=== PATIENT | male | born 1945 | race Caucasian/White ===

== ENCOUNTER → 2020-08-30 | Outpatient (CLI) | payer MEDICARE, BC ==
[2020-08-30 13:21] LABS: BASO # 0.1 10^3/uL (0.0-0.2); BASO % 0.6 % (0.0-1.0); EOS # 0.2 10^3/uL (0.0-0.5); EOS % 2.3 % (0.0-3.0); HEMATOCRIT 32.3 % (42.0-52.0); HEMOGLOBIN 10.3 g/dl (13.5-17.5); LYMPH # 2.2 10^3/uL (1.5-5.0); LYMPH % 27.4 % (24.0-44.0); MEAN CORPUSCULAR HEMOGLOBIN 32.9 pg (27.0-33.0); MEAN CORPUSCULAR HGB CONC 31.9 g/dl (32.0-36.5); MEAN CORPUSCULAR VOLUME 103.2 fl (80.0-96.0); MONO # 0.8 10^3/uL (0.0-0.8); MONO % 9.7 % (0.0-5.0); NEUTROPHILS # 4.9 10^3/uL (1.5-8.5); NEUTROPHILS % 59.5 % (36.0-66.0); PLATELET COUNT, AUTOMATED 230 10^3/uL (150-450); RED BLOOD COUNT 3.13 10^6/uL (4.30-6.10); WHITE BLOOD COUNT 8.2 10^3/uL (4.0-10.0)
[2020-08-30 13:23] LABS: APPEARANCE, URINE CLEAR (CLEAR); BACTERIA, URINE AUTO NEGATIVE (NEGATIVE); BILIRUBIN, URINE AUTO NEGATIVE (NEGATIVE); BLOOD, URINE BLOOD NEGATIVE (NEGATIVE); COLOR, URINE YELLOW (YELLOW); GLUCOSE, URINE (UA) AUTO NEGATIVE (NEGATIVE); KETONE, URINE AUTO NEGATIVE (NEGATIVE); LEUKOCYTE ESTERASE, URINE AUTO NEGATIVE (NEGATIVE); NITRITE, URINE AUTO NEGATIVE (NEGATIVE); PROTEIN, URINE AUTO NEGATIVE (NEGATIVE); RBC, URINE AUTO 0 /HPF (0-3); SPECIFIC GRAVITY URINE AUTO 1.014 (1.002-1.035); SQUAMOUS EPITHELIAL CELL UR AU 0 /HPF (0-6); UROBILINOGEN, URINE AUTO 0.2 mg/dL (0.0-2.0); WBC, URINE AUTO 0 /HPF (0-3)
[2020-08-30 13:54] LABS: BLOOD UREA NITROGEN 19 MG/DL (7-18); CALCIUM LEVEL 8.9 MG/DL (8.8-10.2); CARBON DIOXIDE LEVEL 30 MEQ/L (21-32); CHLORIDE LEVEL 103 MEQ/L (98-107); GLOMERULAR FILTRATION RATE > 60.0 (>42); GLUCOSE, FASTING 88 MG/DL (70-100); POTASSIUM SERUM 4.5 MEQ/L (3.5-5.1); SODIUM LEVEL 139 MEQ/L (136-145)
== END ==
LOC: M WUC 10:35
PROVIDERS: ATTEND Urology
DX: R82.998 Other abnormal findings in urine (principal); R79.9 Abnormal finding of blood chemistry, unspecified

== ENCOUNTER → 2020-11-19 | Outpatient (CLI) | payer SELFPAY | LOC: M LABSMTC 12:33 | PROVIDERS: ATTEND Pediatrics | DX: Z20.828 Contact with and (suspected) exposure to other viral communicable diseases (principal) ==

== ENCOUNTER → 2020-12-25 | Outpatient (CLI) | payer MEDICARE, BC ==
[2020-12-25 12:28] LABS: BASO % 0.4 % (0.0-1.0); EOS # 0.1 10^3/uL (0.0-0.5); EOS % 1.9 % (0.0-3.0); HEMOGLOBIN 11.1 g/dl (13.5-17.5); LYMPH # 2.1 10^3/uL (1.5-5.0); LYMPH % 28.2 % (24.0-44.0); MEAN CORPUSCULAR HEMOGLOBIN 34.2 pg (27.0-33.0); MEAN CORPUSCULAR HGB CONC 32.6 g/dl (32.0-36.5); MEAN CORPUSCULAR VOLUME 104.6 fl (80.0-96.0); MONO # 0.6 10^3/uL (0.0-0.8); MONO % 7.3 % (0.0-5.0); NEUTROPHILS # 4.7 10^3/uL (1.5-8.5); NEUTROPHILS % 62.1 % (36.0-66.0); PLATELET COUNT, AUTOMATED 222 10^3/uL (150-450); RED BLOOD COUNT 3.25 10^6/uL (4.30-6.10); WHITE BLOOD COUNT 7.6 10^3/uL (4.0-10.0)
[2020-12-25 13:18] LABS: CHOLESTEROL LEVEL 153 MG/DL (<200); FERRITIN 511 NG/ML (26-388); FREE T4 0.75 NG/DL (0.76-1.46); HDL CHOLESTEROL 45 MG/DL (>40); LDL CHOLESTEROL 76 MG/DL (<100); NON-HDL-C 108 MG/DL; NT-PRO BNP 98 PG/ML (<125); TOTAL 25(OH) VITAMIN D 26.6 NG/ML (30.0-100.0); TRIGLYCERIDES LEVEL 160 MG/DL (<150); VITAMIN B12 LEVEL 551 PG/ML (247-911)
[2020-12-25 14:10] LABS: PTH INTACT 32.3 PG/ML (18.5-88.0)
[2020-12-25 16:35] LABS: HEMOGLOBIN A1c 5.4 %
[2020-12-27 12:05] LABS: ALBUMIN % 57.1 % (55.8-66.1); ALPHA-1-GLOBULIN % 4.5 % (2.9-4.9); ALPHA-1-GLOBULINS 0.32 GM/DL (0.17-0.41); ALPHA-2-GLOBULINS 0.68 GM/DL (0.42-0.99); ALPHA-2-GLOBULINS % 9.7 % (7.1-11.8); BETA-1-GLOBULINS 0.41 GM/DL (0.28-0.60); BETA-1-GLOBULINS % 5.9 % (4.7-7.2); BETA-2-GLOBULINS 0.42 GM/DL (0.19-0.55); GAMMA GLOBULIN % 16.8 % (11.1-18.8); GAMMA GLOBULINS 1.18 GM/DL (0.65-1.58)
== END ==
LOC: M WUC 10:30
PROVIDERS: ATTEND Family Medicine
DX: D75.89 Other specified diseases of blood and blood-forming organs (principal); E55.9 Vitamin D deficiency, unspecified; E66.9 Obesity, unspecified; E78.2 Mixed hyperlipidemia; I10 Essential (primary) hypertension; Z79.899 Other long term (current) drug therapy

== ENCOUNTER → 2020-12-27 | Outpatient (CLI) | payer MEDICARE, BC | LOC: M LABSMTC 12:03 | PROVIDERS: ATTEND Urology | DX: Z20.822 Contact with and (suspected) exposure to COVID-19 (principal) ==

== ENCOUNTER → 2021-01-18 | Outpatient (CLI) | payer MEDICARE, BC | LOC: M LABSMTC 12:05 | PROVIDERS: ATTEND Urology | DX: Z11.59 Encounter for screening for other viral diseases (principal) ==

== ENCOUNTER → 2021-02-21 | Outpatient (CLI) | payer MEDICARE, BC ==
[~2021-02-21] MED LIST: ISOVUE-370 76% 100ML VIAL As Ordered ONE
--- NOTE | 2021-02-21 08:57 | REP ---
INDICATION: BLADDER CA. COMPARISON: No comparison chest x-ray. TECHNIQUE: Two views.. FINDINGS: The lungs are well inflated and free of infiltrate. The pleural angles are sharp. The heart size is normal. Pulmonary vasculature is not increased. No significant bony abnormality is seen. There is some vascular calcification at the aortic arch. IMPRESSION: No active disease.. <Electronically signed by Jerod Chow > 02/21/21 [id number]
--- NOTE | 2021-02-21 09:41 | REP ---
INDICATION: BLADDER CA. COMPARISON: None. TECHNIQUE: CT abdomen and pelvis performed without IV contrast. CT abdomen pelvis performed with IV contrast as well, following intravenous administration of 100 cc of Isovue 370. Sagittal, coronal and 3D MIP reconstruction images are performed. FINDINGS: Lung bases: Mild fibrotic changes are noted. Liver: A 1 cm hypodense nodule in the left lobe of the liver does not appear to significantly enhance and is consistent with a benign structure such as a cyst. Gallbladder: Prior cholecystectomy. Spleen: Normal. Adrenals: Normal. Pancreas: Normal. Kidneys: In the upper pole the right kidney there is a nonenhancing cyst which measures 2.7 cm in diameter. A cyst in the lower pole the right kidney measures 7 mm in diameter. There is a 1 cm cyst laterally in the mid left kidney. There is no renal or ureteral calculus. Ureters are unremarkable. Diffuse bladder wall thickening is present. Bladder is not optimally distended. There is perivesical fat stranding surrounding the bladder. This raises the possibility of infiltrative tumor although this stranding could be due to cystitis or desmoplastic reaction. Small and large bowel: Unremarkable. Free fluid: None. Adenopathy: None. Appendix: Not inflamed. Osseous structures: There are degenerative changes of the spine without compression deformity. IMPRESSION: Diffuse bladder wall thickening is present. There is perivesical fat stranding surrounding the bladder. This raises the possibility of infiltrative tumor although this stranding could be due to cystitis or desmoplastic reaction. Otherwise no suspicious mass or adenopathy in the abdomen or pelvis. <Electronically signed by Darnell Pina > 02/21/21 0937
== END ==
LOC: M RAD 08:29
PROVIDERS: ATTEND Urology
DX: C67.4 Malignant neoplasm of posterior wall of bladder (principal)
CPT/HCPCS: 71046; 74178; Q9967

== ENCOUNTER → 2021-07-29 | Outpatient (CLI) | payer MEDICARE, BC ==
[2021-07-29 16:43] LABS: BASO % 0.4 % (0.0-1.0); EOS # 0.1 10^3/uL (0.0-0.5); EOS % 1.8 % (0.0-3.0); HEMATOCRIT 32.4 % (42.0-52.0); HEMOGLOBIN 10.5 g/dl (13.5-17.5); LYMPH # 2.3 10^3/uL (1.5-5.0); MEAN CORPUSCULAR HEMOGLOBIN 34.4 pg (27.0-33.0); MEAN CORPUSCULAR HGB CONC 32.4 g/dl (32.0-36.5); MEAN CORPUSCULAR VOLUME 106.2 fl (80.0-96.0); MONO # 0.7 10^3/uL (0.0-0.8); NEUTROPHILS # 4.6 10^3/uL (1.5-8.5); NEUTROPHILS % 58.8 % (36.0-66.0); PLATELET COUNT, AUTOMATED 228 10^3/uL (150-450); RED BLOOD COUNT 3.05 10^6/uL (4.30-6.10); WHITE BLOOD COUNT 7.9 10^3/uL (4.0-10.0)
[2021-07-29 17:10] LABS: ALBUMIN 3.5 GM/DL (3.2-5.2); ALT/SGPT 90 U/L (12-78); BILIRUBIN,TOTAL 0.6 MG/DL (0.2-1.0); BLOOD UREA NITROGEN 21 MG/DL (7-18); C REACTIVE PROTEIN QUANTITATIV 1.15 MG/DL (0.00-0.30); CALCIUM LEVEL 8.9 MG/DL (8.8-10.2); CARBON DIOXIDE LEVEL 28 MEQ/L (21-32); CHLORIDE LEVEL 105 MEQ/L (98-107); CPK CREATINE PHOSPHOKINASE 85 U/L (39-308); CREATININE FOR GFR 0.88 MG/DL (0.70-1.30); GLOMERULAR FILTRATION RATE > 60.0 (>42); GLUCOSE, FASTING 109 MG/DL (70-100); POTASSIUM SERUM 4.6 MEQ/L (3.5-5.1); SODIUM LEVEL 139 MEQ/L (136-145); TOTAL PROTEIN 6.9 GM/DL (6.4-8.2)
[2021-07-31 07:08] LABS: H PYLORI SERUM QUANT IgG ABY 0.43 (0.00-0.79)
== END ==
LOC: M WUC 15:20
PROVIDERS: ATTEND Family Medicine
DX: Z12.5 Encounter for screening for malignant neoplasm of prostate (principal); I10 Essential (primary) hypertension; D75.89 Other specified diseases of blood and blood-forming organs; K21.9 Gastro-esophageal reflux disease without esophagitis; E78.2 Mixed hyperlipidemia
CPT/HCPCS: 36415; 80053; 82550; 83525; 85025; 85046; 86140; 86677; G0103

== ENCOUNTER → 2021-08-12 | Outpatient (REF) | payer MEDICARE, BC | LOC: M SFHCPLAZ 12:57 | PROVIDERS: ATTEND Family Medicine | DX: L57.0 Actinic keratosis (principal) ==

== ENCOUNTER → 2021-08-26 | Outpatient (CLI) | payer MEDICARE, BC ==
--- NOTE | 2021-08-27 00:14 | ECHO ---
ECHOCARDIOGRAM DATE OF PROCEDURE: 08/26/2021 Age: 76 Gender: Male Height: 177 cm Weight: 106 kg REFERRING PHYSICIAN: Dr. Jeffery Nicolas INDICATION: Chronic congestive heart failure 2D MEASUREMENTS: IVS 1.4 cm LV 4.6 cm LVPW 1.4 cm LA 4.6 cm Aorta 3.4 cm Left atrial volume index 36 DOPPLER MEASUREMENT Mitral E wave velocity 83 Mitral A 69 E prime septal 6.3 E prime lateral 8.1 FINDINGS: This study is of fair technical quality with difficult visualization, underlying sinus bradycardia with ventricular rate around 55 beats per minute. Left ventricular is normal size. Mild to moderate left ventricular hypertrophy is noted. Overall estimated LVEF is around 75%. I do not appreciate any segmental wall motion abnormalities. The right ventricle is grossly normal size, but it was poorly visualized. The left atrium is moderately enlarged. The right atrium was poorly seen. The aortic valve is mildly sclerotic, but mobility is preserved. There are also minimal degenerative abnormalities of mitral valve. Mobility of leaflet is preserved as well. The tricuspid valve appears normal. Pulmonic valve was not seen. No pericardial effusion is noted. Inferior vena cava was not seen. Abdominal aorta was not visualized. Aortic root and visualized segment of aortic arch appear normal. Doppler interrogation reveals competent aortic valve. There is trace mitral and trace tricuspid insufficiency. Quality of TR jet was not sufficient in order to determine pulmonary artery pressure. Mitral inflow pattern and tissue Doppler imaging of mitral annulus revealed grade 2 diastolic dysfunction. CONCLUSIONS: 1. Study is of acceptable technical quality considering patient's body habitus; underlying sinus bradycardia. 2. Normal LV size with mild to moderate left ventricular hypertrophy and hyperdynamic LV systolic function. Estimated LVEF approximately 75%. Grade 2 diastolic dysfunction. 3. No hemodynamically significant valvular disease. 4. Unable to estimate central venous pressure and pulmonary artery pressure.
== END ==
LOC: M CARPUL 09:51
PROVIDERS: ATTEND Family Medicine
DX: I50.32 Chronic diastolic (congestive) heart failure (principal)

== ENCOUNTER → 2021-12-03 | Outpatient (CLI) | payer MEDICARE, BC ==
[~2021-12-03] MED LIST changes: +CIDA500T2 PO; -ISOVUE-370 76% 100ML VIAL As Ordered ONE; +LISI10TA22 PO; +LOVA20TA2 PO; +METO1TAB87 PO; +TAMS1CAP17 PO; +VITA200048 PO
== END ==
LOC: M WUC 13:16
PROVIDERS: ATTEND Urology
DX: C67.4 Malignant neoplasm of posterior wall of bladder (principal); R97.20 Elevated prostate specific antigen [PSA]

== ENCOUNTER → 2021-12-17 | Outpatient (CLI) | payer MEDICARE, BC ==
[2021-12-17 17:19] LABS: INR 1.01; PROTHROMBIN TIME 13.7 SECONDS (12.7-14.5)
[2021-12-17 17:20] LABS: PARTIAL THROMBOPLASTIN TIME 36.5 SECONDS (25.9-37.0)
[2021-12-17 17:29] LABS: FERRITIN 482 NG/ML (26-388); IRON (FE) 110 UG/DL (65-175); NT-PRO BNP 220 PG/ML (<125); PERCENT SATURATION 42.8 % (19.7-50.0); TOTAL IRON BINDING CAPACITY 257 UG/DL (250-450)
[2021-12-17 17:47] LABS: HEPATITIS B SURFACE ANTIGEN NEGATIVE (NEGATIVE)
[2021-12-17 18:15] LABS: HEPATITIS C VIRUS ABY INDEX < 0.0 INDEX (<0.8)
== END ==
LOC: M PLALAB 14:56
PROVIDERS: ATTEND Family Medicine
DX: R73.01 Impaired fasting glucose (principal); K76.0 Fatty (change of) liver, not elsewhere classified

== ENCOUNTER → 2022-01-01 | Outpatient (CLI) | payer MEDICARE, BC | LOC: M LABSMTC 11:12 | PROVIDERS: ATTEND Anesthesiology | DX: Z01.818 Encounter for other preprocedural examination (principal); Z11.52 Encounter for screening for COVID-19 ==

== ENCOUNTER 2022-01-06 10:18 | Day surgery (SDC) | payer MEDICARE, BC ==
[~2022-01-06] VITALS: Ht 177.8 cm; Wt 106.1 kg
[~2022-01-06 10:18] MED LIST changes: +NS 1,000 ML IV ONE
[2022-01-06] MEDS ORDERED: LIDOCAINE 2% 100MG/5ML SDV (FOR ANES.) As Ordered ONE (10:53)
[2022-01-06] MEDS ORDERED: propofoL 200 MG/20 ML VIAL As Ordered ONE (10:53)
[2022-01-06 12:15] VITALS: BP 118/57
== END 2022-01-06 13:00 | disposition home or self-care (01) ==
LOC: M OPP 10:18
PROVIDERS: ATTEND Internal Medicine Gastroenterology
DX: Z12.11 Encounter for screening for malignant neoplasm of colon (principal); D12.6 Benign neoplasm of colon, unspecified; K64.8 Other hemorrhoids; N40.0 Benign prostatic hyperplasia without lower urinary tract symptoms; R00.0 Tachycardia, unspecified; Z79.899 Other long term (current) drug therapy; Z88.8 Allergy status to other drugs, medicaments and biological substances; Z85.51 Personal history of malignant neoplasm of bladder

== ENCOUNTER → 2022-02-04 | Outpatient (CLI) | payer MEDICARE, BC ==
[~2022-02-04] MED LIST changes: -NS 1,000 ML IV ONE
[2022-02-04 13:47] LABS: APPEARANCE, URINE CLEAR (CLEAR); BACTERIA, URINE AUTO NEGATIVE (NEGATIVE); BILIRUBIN, URINE AUTO NEGATIVE (NEGATIVE); BLOOD, URINE BLOOD NEGATIVE (NEGATIVE); COLOR, URINE YELLOW (YELLOW); GLUCOSE, URINE (UA) AUTO NEGATIVE (NEGATIVE); KETONE, URINE AUTO NEGATIVE (NEGATIVE); LEUKOCYTE ESTERASE, URINE AUTO NEGATIVE (NEGATIVE); MUCUS, URINE SMALL (NEGATIVE); NITRITE, URINE AUTO NEGATIVE (NEGATIVE); PROTEIN, URINE AUTO NEGATIVE (NEGATIVE); RBC, URINE AUTO 0 /HPF (0-3); SPECIFIC GRAVITY URINE AUTO 1.019 (1.002-1.035); SQUAMOUS EPITHELIAL CELL UR AU 0 /HPF (0-6); WBC, URINE AUTO 1 /HPF (0-3)
[2022-02-04 13:53] LABS: BASO % 0.5 % (0.0-1.0); EOS # 0.1 10^3/uL (0.0-0.5); EOS % 1.4 % (0.0-3.0); HEMATOCRIT 31.1 % (42.0-52.0); HEMOGLOBIN 10.3 g/dl (13.5-17.5); LYMPH # 2.3 10^3/uL (1.5-5.0); LYMPH % 26.7 % (24.0-44.0); MEAN CORPUSCULAR HEMOGLOBIN 34.8 pg (27.0-33.0); MEAN CORPUSCULAR HGB CONC 33.1 g/dl (32.0-36.5); MEAN CORPUSCULAR VOLUME 105.1 fl (80.0-96.0); MONO # 0.7 10^3/uL (0.0-0.8); MONO % 8.4 % (2.0-8.0); NEUTROPHILS # 5.4 10^3/uL (1.5-8.5); NEUTROPHILS % 62.7 % (36.0-66.0); PLATELET COUNT, AUTOMATED 221 10^3/uL (150-450); RED BLOOD COUNT 2.96 10^6/uL (4.30-6.10); WHITE BLOOD COUNT 8.7 10^3/uL (4.0-10.0)
[2022-02-04 13:58] LABS: INR 0.99; PROTHROMBIN TIME 13.5 SECONDS (12.7-14.5)
[2022-02-04 14:21] LABS: ALBUMIN 3.6 GM/DL (3.2-5.2); ALT/SGPT 71 U/L (12-78); BILIRUBIN,TOTAL 0.5 MG/DL (0.2-1.0); BLOOD UREA NITROGEN 21 MG/DL (7-18); CARBON DIOXIDE LEVEL 33 MEQ/L (21-32); CHLORIDE LEVEL 106 MEQ/L (98-107); CREATININE FOR GFR 0.94 MG/DL (0.70-1.30); GLOMERULAR FILTRATION RATE > 60.0 (>42); GLUCOSE, FASTING 90 MG/DL (70-100); NT-PRO BNP 281 PG/ML (<125); POTASSIUM SERUM 4.7 MEQ/L (3.5-5.1); SODIUM LEVEL 140 MEQ/L (136-145)
[2022-02-04 14:48] LABS: HEMOGLOBIN A1c 5.7 %
[2022-02-07 19:10] LABS: ANTI-MITOCHONDRIAL ANTIBODY <20.0 Units (0.0-20.0); INSULIN LEVEL 29.9 uIU/mL (2.6-24.9)
== END ==
LOC: M PLALAB 11:49
PROVIDERS: ATTEND Family Medicine
DX: D75.89 Other specified diseases of blood and blood-forming organs (principal); I11.0 Hypertensive heart disease with heart failure; K76.0 Fatty (change of) liver, not elsewhere classified; R73.01 Impaired fasting glucose; I50.32 Chronic diastolic (congestive) heart failure; Z12.5 Encounter for screening for malignant neoplasm of prostate; Z79.899 Other long term (current) drug therapy
CPT/HCPCS: 36415; 80053; 81001; 81256; 83036; 83525; 83625; 83880; 85025; 85610; 85730; 86255; 87086; G0103

== ENCOUNTER → 2022-02-06 | Outpatient (CLI) | payer MEDICARE, BC | LOC: M LABSMTC 11:00 | PROVIDERS: ATTEND Urology | DX: Z11.52 Encounter for screening for COVID-19 (principal) ==

== ENCOUNTER → 2022-03-31 | Outpatient (CLI) | payer MEDICARE, BC | LOC: M SLEEP HO 10:13 | PROVIDERS: ATTEND Family Medicine | DX: G47.33 Obstructive sleep apnea (adult) (pediatric) (principal) ==

== ENCOUNTER 2022-05-30 20:40 | Emergency (ER) | payer MEDICARE, BC ==
[~2022-05-30] VITALS: Ht 177.8 cm; Wt 106.0 kg
[2022-05-30 23:34] LABS: BASO % 0.4 % (0.0-1.0); EOS # 0.1 10^3/uL (0.0-0.5); EOS % 1.5 % (0.0-3.0); HEMATOCRIT 30.9 % (42.0-52.0); HEMOGLOBIN 9.9 g/dl (13.5-17.5); LYMPH # 2.4 10^3/uL (1.5-5.0); LYMPH % 28.5 % (24.0-44.0); MEAN CORPUSCULAR HEMOGLOBIN 34.4 pg (27.0-33.0); MEAN CORPUSCULAR VOLUME 107.3 fl (80.0-96.0); MONO # 0.6 10^3/uL (0.0-0.8); MONO % 6.7 % (2.0-8.0); NEUTROPHILS # 5.3 10^3/uL (1.5-8.5); NEUTROPHILS % 62.4 % (36.0-66.0); PLATELET COUNT, AUTOMATED 212 10^3/uL (150-450); RED BLOOD COUNT 2.88 10^6/uL (4.30-6.10); WHITE BLOOD COUNT 8.5 10^3/uL (4.0-10.0)
[2022-05-30 23:57] LABS: ALBUMIN 4.1 GM/DL (3.2-5.2); ALT/SGPT 71 U/L (12-78); BILIRUBIN,DIRECT 0.3 MG/DL (0.0-0.2); BILIRUBIN,TOTAL 0.7 MG/DL (0.2-1.0); BLOOD UREA NITROGEN 22 MG/DL (7-18); CALCIUM LEVEL 9.2 MG/DL (8.8-10.2); CARBON DIOXIDE LEVEL 32 MEQ/L (21-32); CHLORIDE LEVEL 106 MEQ/L (98-107); CREATININE FOR GFR 1.01 MG/DL (0.70-1.30); GLOMERULAR FILTRATION RATE > 60.0 (>42); GLUCOSE, FASTING 98 MG/DL (70-100); LIPASE 263 U/L (73-393); POTASSIUM SERUM 4.6 MEQ/L (3.5-5.1); SODIUM LEVEL 140 MEQ/L (136-145); TOTAL PROTEIN 6.9 GM/DL (6.4-8.2)
[2022-05-31 04:35] LABS: CK-MB VALUE MASS 2.4 NG/ML (<3.6); MB/CK RELATIVE INDEX 2.4 (< OR =4)
[2022-05-31] MEDS ORDERED: ISOVUE-370 76% 100ML VIAL As Ordered ONE (06:13)
[2022-05-31 10:00] VITALS: BP 174/76
== END 2022-05-31 10:26 | disposition home or self-care (01) ==
LOC: M ED 20:40
DX: R10.9 Unspecified abdominal pain (principal); R19.7 Diarrhea, unspecified; I10 Essential (primary) hypertension; E78.5 Hyperlipidemia, unspecified; N40.0 Benign prostatic hyperplasia without lower urinary tract symptoms; Z88.8 Allergy status to other drugs, medicaments and biological substances; Z88.6 Allergy status to analgesic agent; Z79.899 Other long term (current) drug therapy
CPT/HCPCS: 36415; 74177; 80048; 80076; 81001; 82550; 82553; 83690; 84484; 85025; 99284; Q9967

== ENCOUNTER → 2022-07-09 | Outpatient (CLI) | payer MEDICARE, BC ==
[~2022-07-09] MED LIST changes: +BACT800T5 PO; +OXYB5TAB10 PO; +PYRI1TAB5 PO
== END ==
LOC: M LABSMTC 09:15
PROVIDERS: ATTEND Anesthesiology
DX: Z01.812 Encounter for preprocedural laboratory examination (principal); Z20.822 Contact with and (suspected) exposure to COVID-19

== ENCOUNTER → 2022-07-09 | Outpatient (CLI) | payer MEDICARE, BC ==
[2022-07-09 14:12] LABS: HEMATOCRIT 33.3 % (42.0-52.0); HEMOGLOBIN 10.6 g/dl (13.5-17.5); MEAN CORPUSCULAR HEMOGLOBIN 34.8 pg (27.0-33.0); MEAN CORPUSCULAR HGB CONC 31.8 g/dl (32.0-36.5); MEAN CORPUSCULAR VOLUME 109.2 fl (80.0-96.0); PLATELET COUNT, AUTOMATED 229 10^3/uL (150-450); RED BLOOD COUNT 3.05 10^6/uL (4.30-6.10); WHITE BLOOD COUNT 7.4 10^3/uL (4.0-10.0)
[2022-07-09 14:28] LABS: PROTHROMBIN TIME 13.6 SECONDS (12.7-14.5)
[2022-07-09 14:50] LABS: ALBUMIN 3.7 GM/DL (3.2-5.2); ALT/SGPT 73 U/L (12-78); BILIRUBIN,TOTAL 1.1 MG/DL (0.2-1.0); BLOOD UREA NITROGEN 20 MG/DL (7-18); CALCIUM LEVEL 8.9 MG/DL (8.8-10.2); CARBON DIOXIDE LEVEL 30 MEQ/L (21-32); CHLORIDE LEVEL 104 MEQ/L (98-107); CREATININE FOR GFR 0.91 MG/DL (0.70-1.30); GLOMERULAR FILTRATION RATE > 60.0 (>42); GLUCOSE, FASTING 103 MG/DL (70-100); NT-PRO BNP 220 PG/ML (<450); POTASSIUM SERUM 4.7 MEQ/L (3.5-5.1); SODIUM LEVEL 139 MEQ/L (136-145); TOTAL PROTEIN 7.6 GM/DL (6.4-8.2)
== END ==
LOC: M PLAIMG 10:39
PROVIDERS: ATTEND Internal Medicine Hematology
DX: Z01.810 Encounter for preprocedural cardiovascular examination (principal); C67.9 Malignant neoplasm of bladder, unspecified; Z79.899 Other long term (current) drug therapy

== ENCOUNTER 2022-07-14 07:36 | Day surgery (SDC) | payer MEDICARE, BC ==
[~2022-07-14] VITALS: Ht 177.8 cm; Wt 106.5 kg
[~2022-07-14 07:36] MED LIST changes: -BACT800T5 PO; +ISOVUE-300 61% 50ML VIAL As Ordered ONE; -OXYB5TAB10 PO; -PYRI1TAB5 PO; +ceFAZolin SOD 2 GM in IV 1 EA IV ONE
[2022-07-14] MEDS ORDERED: LR 1,000 ML IV SCH ×2 (08:10→09:15)
[2022-07-14] MEDS ORDERED: ONDANSETRON 4MG 2ML VIAL As Ordered ONE (08:46)
[2022-07-14] MEDS ORDERED: LIDOCAINE 2% 100MG/5ML SDV (FOR ANES.) As Ordered ONE (08:46)
[2022-07-14] MEDS ORDERED: METOCLOPRAMIDE INJ 10MG/2ML VIAL (J2765 PER 1) As Ordered ONE (08:46)
[2022-07-14] MEDS ORDERED: SEVOFLURANE INHAL SOLN 250 ML BTL As Ordered ONE (08:46)
[2022-07-14] MEDS ORDERED: dexameTHASONE 4 MG/ML 1ML VIAL (J1100 PER 1MG) As Ordered ONE (08:46)
[2022-07-14] MEDS ORDERED: propofoL 200 MG/20 ML VIAL As Ordered ONE (08:46)
[2022-07-14] MEDS ORDERED: fentaNYL 100 MCG/2 ML INJECTION As Ordered ONE (08:46)
[2022-07-14] MEDS ORDERED: ACETAMINOPHEN 1000MG 100ML IV BTL (OFIRMEV) (J0131 PER 10MG) As Ordered ONE (08:46)
[2022-07-14] MEDS ORDERED: SUGAMMADEX SODIUM 500 MG/5 ML VIAL (BRIDION) As Ordered ONE (08:46)
[2022-07-14] MEDS ORDERED: ROCURONIUM BROMIDE 50 MG/5 ML VIAL As Ordered ONE (08:46)
[2022-07-14] MEDS ORDERED: MIDAZOLAM INJ 2MG/2ML VIAL (J2250 PER 1MG) As Ordered ONE (08:46)
[2022-07-14] MEDS ORDERED: mitoMYcin 40MG VIAL *UROLOGY* (J9280 PER 5MG) INTRAVESIC ONE (09:00)
[2022-07-14] MEDS ORDERED: ALBUTEROL 6.7GM INHALER **FOR ANES. CART/OMNICELL ONLY As Ordered ONE (09:07)
[2022-07-14] MEDS ORDERED: fentaNYL 100 MCG/2 ML INJECTION IV PRN (09:15)
[2022-07-14] MEDS ORDERED: ONDANSETRON 4MG 2ML VIAL IV PRN (09:15)
[2022-07-14] MEDS ORDERED: PYRI1TAB5 PO (09:15)
[2022-07-14] MEDS ORDERED: BACT800T5 PO (09:15)
[2022-07-14] MEDS ORDERED: oxyCODONE 5MG TAB PO PRN (09:15)
[2022-07-14] MEDS ORDERED: OXYB5TAB10 PO (09:15)
[2022-07-14 11:30] VITALS: BP 133/70
== END 2022-07-14 11:55 | disposition home or self-care (01) ==
LOC: M SDC 07:36
PROVIDERS: ATTEND Urology
DX: N30.80 Other cystitis without hematuria (principal); Z85.51 Personal history of malignant neoplasm of bladder; I25.10 Atherosclerotic heart disease of native coronary artery without angina pectoris; I25.2 Old myocardial infarction; I10 Essential (primary) hypertension; G47.33 Obstructive sleep apnea (adult) (pediatric); E78.5 Hyperlipidemia, unspecified; Z87.891 Personal history of nicotine dependence; Z79.899 Other long term (current) drug therapy; K21.9 Gastro-esophageal reflux disease without esophagitis; Z92.21 Personal history of antineoplastic chemotherapy; Z88.8 Allergy status to other drugs, medicaments and biological substances
CPT/HCPCS: 51720; 52235; 88305; J0131; J0690; J1100; J2250; J2405; J2765; J3010; J9280

== ENCOUNTER → 2022-07-21 | Outpatient (REF) | payer MEDICARE, BC ==
[~2022-07-21] MED LIST changes: +BACT800T5 PO; -ISOVUE-300 61% 50ML VIAL As Ordered ONE; +OXYB5TAB10 PO; +PYRI1TAB5 PO; -ceFAZolin SOD 2 GM in IV 1 EA IV ONE
[2022-07-21 13:25] LABS: APPEARANCE, URINE MANUAL CLEAR (CLEAR); BILIRUBIN, URINE MANUAL OBSCURED (NEGATIVE); COLOR, URINE MANUAL ORANGE (YELLOW); KETONE, URINE MANUAL OBSCURED mg/dL (NEGATIVE); UROBILINOGEN, URINE MANUAL OBSCURED mg/dl (NORMAL)
[2022-07-21 13:26] LABS: BLOOD URINE MANUAL POSITIVE (NEGATIVE); GLUCOSE, URINE (UA) MANUAL NEGATIVE (NEGATIVE); PROTEIN, URINE MANUAL OBSCURED mg/dL (NEGATIVE)
[2022-07-21 13:27] LABS: LEUKOCYTE ESTERASE, URINE MAN OBSCURED (NEGATIVE); NITRITE, URINE MANUAL OBSCURED (NEGATIVE)
[2022-07-21 13:40] LABS: BACTERIA, URINE SMALL AMOUNT; HYALINE CAST, URINE NONE SEEN /lpf (0-1); MUCUS, URINE SMALL AMOUNT (NEGATIVE); RBC, URINE 30-40 /hpf (0-3); SQUAMOUS EPITHELIAL CELL URINE SMALL AMOUNT /hpf (SMALL AMT)
== END ==
LOC: M SMT 13:09
PROVIDERS: ATTEND Physician Assistant
DX: R30.0 Dysuria (principal)

== ENCOUNTER → 2022-08-08 | Outpatient (CLI) | payer MEDICARE, BC ==
[2022-08-08 18:09] LABS: BASO % 0.6 % (0.0-1.0); EOS # 0.3 10^3/uL (0.0-0.5); EOS % 4.2 % (0.0-3.0); HEMATOCRIT 30.2 % (42.0-52.0); HEMOGLOBIN 9.7 g/dl (13.5-17.5); LYMPH % 27.8 % (24.0-44.0); MEAN CORPUSCULAR HEMOGLOBIN 34.5 pg (27.0-33.0); MEAN CORPUSCULAR HGB CONC 32.1 g/dl (32.0-36.5); MEAN CORPUSCULAR VOLUME 107.5 fl (80.0-96.0); MONO # 0.6 10^3/uL (0.0-0.8); NEUTROPHILS # 4.2 10^3/uL (1.5-8.5); NEUTROPHILS % 59.1 % (36.0-66.0); PLATELET COUNT, AUTOMATED 234 10^3/uL (150-450); RED BLOOD COUNT 2.81 10^6/uL (4.30-6.10); WHITE BLOOD COUNT 7.2 10^3/uL (4.0-10.0)
[2022-08-08 18:39] LABS: ALT/SGPT 80 U/L (12-78); BILIRUBIN,TOTAL 0.6 MG/DL (0.2-1.0); BLOOD UREA NITROGEN 18 MG/DL (7-18); C REACTIVE PROTEIN QUANTITATIV 1.94 MG/DL (0.00-0.30); CALCIUM LEVEL 9.4 MG/DL (8.8-10.2); CARBON DIOXIDE LEVEL 29 MEQ/L (21-32); CHLORIDE LEVEL 103 MEQ/L (98-107); CREATININE FOR GFR 0.91 MG/DL (0.70-1.30); GLOMERULAR FILTRATION RATE > 60.0 (>42); GLUCOSE, FASTING 92 MG/DL (70-100); POTASSIUM SERUM 4.8 MEQ/L (3.5-5.1); SODIUM LEVEL 135 MEQ/L (136-145); TOTAL PROTEIN 7.6 GM/DL (6.4-8.2)
[2022-08-08 19:33] LABS: APPEARANCE, URINE MANUAL CLEAR (CLEAR); BILIRUBIN, URINE MANUAL OBSCURED (NEGATIVE); COLOR, URINE MANUAL ORANGE (YELLOW); GLUCOSE, URINE (UA) MANUAL OBSCURED mg/dL (NEGATIVE); KETONE, URINE MANUAL OBSCURED mg/dL (NEGATIVE); PH,URINE MAN OBSCURED UNITS (5.0 - 7.0); PROTEIN, URINE MANUAL OBSCURED mg/dL (NEGATIVE); SPECIFIC GRAVITY,URINE MANUAL 1.015 (1.002-1.035); UROBILINOGEN, URINE MANUAL OBSCURED mg/dl (NORMAL)
[2022-08-08 19:34] LABS: BLOOD URINE MANUAL OBSCURED (NEGATIVE); LEUKOCYTE ESTERASE, URINE MAN OBSCURED (NEGATIVE); NITRITE, URINE MANUAL OBSCURED (NEGATIVE)
[2022-08-08 19:51] LABS: BACTERIA, URINE NONE SEEN; HYALINE CAST, URINE 0-1 /lpf (0-1); RBC, URINE 0-1 /hpf (0-3); SQUAMOUS EPITHELIAL CELL URINE NONE SEEN /hpf (SMALL AMT)
== END ==
LOC: M LAB 17:25
PROVIDERS: ATTEND Family Medicine
DX: C67.9 Malignant neoplasm of bladder, unspecified (principal); Z79.899 Other long term (current) drug therapy
CPT/HCPCS: 36415; 80053; 81000; 85025; 86140; 87086; G0103

== ENCOUNTER → 2022-08-26 | Outpatient (CLI) | payer MEDICARE, BC | LOC: M SLEEP 20:00 | PROVIDERS: ATTEND Physician Assistant | DX: G47.33 Obstructive sleep apnea (adult) (pediatric) (principal) ==

== ENCOUNTER → 2022-09-08 | Outpatient (REF) | payer MEDICARE, BC ==
[2022-09-08 17:05] LABS: BASO % 0.6 % (0.0-1.0); EOS # 0.1 10^3/uL (0.0-0.5); EOS % 1.8 % (0.0-3.0); HEMATOCRIT 29.2 % (42.0-52.0); HEMOGLOBIN 9.3 g/dl (13.5-17.5); LYMPH # 1.8 10^3/uL (1.5-5.0); LYMPH % 27.4 % (24.0-44.0); MEAN CORPUSCULAR HEMOGLOBIN 34.3 pg (27.0-33.0); MEAN CORPUSCULAR HGB CONC 31.8 g/dl (32.0-36.5); MEAN CORPUSCULAR VOLUME 107.7 fl (80.0-96.0); MONO # 0.6 10^3/uL (0.0-0.8); MONO % 8.4 % (2.0-8.0); NEUTROPHILS % 61.5 % (36.0-66.0); PLATELET COUNT, AUTOMATED 243 10^3/uL (150-450); RED BLOOD COUNT 2.71 10^6/uL (4.30-6.10); WHITE BLOOD COUNT 6.5 10^3/uL (4.0-10.0)
[2022-09-08 17:30] LABS: INR 0.99; PROTHROMBIN TIME 13.3 SECONDS (12.5-14.5)
[2022-09-08 17:31] LABS: PARTIAL THROMBOPLASTIN TIME 31.1 SECONDS (24.8-34.2)
== END ==
LOC: M PLALAB 16:37
PROVIDERS: ATTEND Physician Assistant
DX: K62.5 Hemorrhage of anus and rectum (principal)

== ENCOUNTER → 2022-10-06 | Outpatient (CLI) | payer MEDICARE, BC | LOC: M SLEEP 20:00 | PROVIDERS: ATTEND Physician Assistant | DX: G47.33 Obstructive sleep apnea (adult) (pediatric) (principal) ==

== ENCOUNTER → 2022-10-06 | Outpatient (CLI) | payer MEDICARE, BC ==
[2022-10-06 18:09] LABS: BASO % 0.5 % (0.0-1.0); EOS # 0.1 10^3/uL (0.0-0.5); EOS % 1.7 % (0.0-3.0); HEMATOCRIT 28.5 % (42.0-52.0); HEMOGLOBIN 8.9 g/dl (13.5-17.5); LYMPH # 1.6 10^3/uL (1.5-5.0); LYMPH % 27.5 % (24.0-44.0); MEAN CORPUSCULAR HEMOGLOBIN 34.2 pg (27.0-33.0); MEAN CORPUSCULAR HGB CONC 31.2 g/dl (32.0-36.5); MEAN CORPUSCULAR VOLUME 109.6 fl (80.0-96.0); MONO # 0.6 10^3/uL (0.0-0.8); MONO % 9.8 % (2.0-8.0); NEUTROPHILS # 3.6 10^3/uL (1.5-8.5); NEUTROPHILS % 60.2 % (36.0-66.0); PLATELET COUNT, AUTOMATED 217 10^3/uL (150-450); WHITE BLOOD COUNT 5.9 10^3/uL (4.0-10.0)
[2022-10-06 21:02] LABS: VITAMIN B12 LEVEL 408 PG/ML (247-911)
== END ==
LOC: M PLALAB 15:44
PROVIDERS: ATTEND Family Medicine
DX: D64.9 Anemia, unspecified (principal)

== ENCOUNTER → 2022-10-15 | Outpatient (REF) | payer MEDICARE, BC ==
[2022-10-15 20:14] LABS: APPEARANCE, URINE MANUAL CLEAR (CLEAR)
[2022-10-15 20:15] LABS: COLOR, URINE MANUAL ORANGE (YELLOW); GLUCOSE, URINE (UA) MANUAL NEGATIVE (NEGATIVE); KETONE, URINE MANUAL OBSCURED mg/dL (NEGATIVE); PROTEIN, URINE MANUAL OBSCURED mg/dL (NEGATIVE); SPECIFIC GRAVITY,URINE MANUAL 1.025 (1.002-1.035)
[2022-10-15 20:28] LABS: BILIRUBIN, URINE MANUAL OBSCURED (NEGATIVE); LEUKOCYTE ESTERASE, URINE MAN OBSCURED (NEGATIVE); NITRITE, URINE MANUAL OBSCURED (NEGATIVE); UROBILINOGEN, URINE MANUAL OBSCURED mg/dl (NORMAL)
[2022-10-15 20:29] LABS: BLOOD URINE MANUAL NEGATIVE (NEGATIVE)
[2022-10-15 20:32] LABS: BACTERIA, URINE SMALL AMOUNT; HYALINE CAST, URINE NONE SEEN /lpf (0-1); MUCUS, URINE SMALL AMOUNT (NEGATIVE); RBC, URINE 0-1 /hpf (0-3); SQUAMOUS EPITHELIAL CELL URINE SMALL AMOUNT /hpf (SMALL AMT)
== END ==
LOC: M SMT 17:13
PROVIDERS: ATTEND Urology
DX: Z85.51 Personal history of malignant neoplasm of bladder (principal)

== ENCOUNTER 2022-11-08 14:52 | Emergency (ER) | payer MEDICARE, BC ==
[~2022-11-08] VITALS: Ht 177.8 cm; Wt 99.1 kg
[2022-11-08] MEDS ORDERED: PENT10CA (15:10)
[2022-11-08] MEDS ORDERED: ACET-683 PO (15:10)
[2022-11-08] MEDS ORDERED: ASPIRIN 81MG CHEW TABLET PO ONE (15:20)
[2022-11-08] MEDS ORDERED: NITROGLYCERIN 0.4MG SUBL TABLET SL PRN (15:20)
[2022-11-08 15:24] VITALS: BP 158/72
[2022-11-08 15:34] LABS: BASO % 0.4 % (0.0-1.0); EOS # 0.1 10^3/uL (0.0-0.5); HEMATOCRIT 27.6 % (42.0-52.0); HEMOGLOBIN 8.8 g/dl (13.5-17.5); LYMPH # 1.8 10^3/uL (1.5-5.0); MEAN CORPUSCULAR HEMOGLOBIN 34.1 pg (27.0-33.0); MEAN CORPUSCULAR HGB CONC 31.9 g/dl (32.0-36.5); MONO # 0.5 10^3/uL (0.0-0.8); MONO % 8.7 % (2.0-8.0); NEUTROPHILS # 3.2 10^3/uL (1.5-8.5); NEUTROPHILS % 56.7 % (36.0-66.0); PLATELET COUNT, AUTOMATED 241 10^3/uL (150-450); RED BLOOD COUNT 2.58 10^6/uL (4.30-6.10); WHITE BLOOD COUNT 5.6 10^3/uL (4.0-10.0)
[2022-11-08 15:49] LABS: INR 0.99; PROTHROMBIN TIME 13.3 SECONDS (12.5-14.5)
[2022-11-08 15:50] LABS: PARTIAL THROMBOPLASTIN TIME 30.9 SECONDS (24.8-34.2)
[2022-11-08 15:58] LABS: CK-MB VALUE MASS 1.9 NG/ML (<3.6)
[2022-11-08 15:59] LABS: LIPASE 51 U/L (12-53)
[2022-11-08 16:00] LABS: BILIRUBIN,DIRECT 0.3 MG/DL (<0.4); CPK CREATINE PHOSPHOKINASE 79 U/L (46-171)
[2022-11-08 16:01] LABS: ALBUMIN 3.9 G/DL (3.2-5.2); ALKALINE PHOSPHATASE 98 U/L (46-116); ALT/SGPT 45 U/L (7.0-40); AST/SGOT 36 U/L (<34); BILIRUBIN,TOTAL 0.7 MG/DL (0.3-1.2); BLOOD UREA NITROGEN 25 MG/DL (9-23); CALCIUM LEVEL 8.9 MG/DL (8.3-10.6); CARBON DIOXIDE LEVEL 25 MMOL/L (20-31); CHLORIDE LEVEL 103 MMOL/L (98-107); CREATININE FOR GFR 0.96 MG/DL (0.70-1.30); GLOMERULAR FILTRATION RATE > 60.0 (>42); GLUCOSE, FASTING 113 MG/DL (74-106); POTASSIUM SERUM 4.2 MMOL/L (3.5-5.1); SODIUM LEVEL 140 MMOL/L (136-145); TOTAL PROTEIN 6.8 G/DL (5.7-8.2)
[2022-11-08 16:03] LABS: FREE T4 0.89 NG/DL (0.89-1.76); THYROID STIMULATING HORMONE 1.762 uIU/ML (0.55-4.78)
[2022-11-08] MEDS ORDERED: ISOVUE-370 76% 100ML VIAL As Ordered ONE (16:19)
[2022-11-08 16:56] LABS: CK-MB VALUE MASS 2.7 NG/ML (<3.6)
[2022-11-08 16:57] LABS: MB/CK RELATIVE INDEX 3.64 (< OR =4)
[2022-11-08 17:45] VITALS: BP 168/74
[2022-11-08] MEDS ORDERED: NITR4TASL SL (17:56)
== END 2022-11-08 18:15 | disposition home or self-care (01) ==
LOC: M ED 14:52
DX: R07.9 Chest pain, unspecified (principal); I11.0 Hypertensive heart disease with heart failure; I50.9 Heart failure, unspecified; E78.5 Hyperlipidemia, unspecified; I25.10 Atherosclerotic heart disease of native coronary artery without angina pectoris; I25.2 Old myocardial infarction; N40.0 Benign prostatic hyperplasia without lower urinary tract symptoms; K21.9 Gastro-esophageal reflux disease without esophagitis; C67.9 Malignant neoplasm of bladder, unspecified; K76.0 Fatty (change of) liver, not elsewhere classified
CPT/HCPCS: 36415; 71046; 71275; 80048; 80076; 82550; 82553; 83690; 84439; 84443; 84484; 85025; 85610; 85730; 93005; 93041; 94760; 99285; Q9967

== ENCOUNTER → 2022-11-13 | Outpatient (CLI) | payer MEDICARE, BC ==
[~2022-11-13] MED LIST changes: +ACET-683 PO; +NITR4TASL SL; +PENT10CA
[2022-11-13 13:36] LABS: BASO % 0.5 % (0.0-1.0); EOS # 0.1 10^3/uL (0.0-0.5); EOS % 1.1 % (0.0-3.0); HEMATOCRIT 28.3 % (42.0-52.0); HEMOGLOBIN 8.7 g/dl (13.5-17.5); LYMPH # 1.8 10^3/uL (1.5-5.0); LYMPH % 28.4 % (24.0-44.0); MEAN CORPUSCULAR HEMOGLOBIN 33.6 pg (27.0-33.0); MEAN CORPUSCULAR HGB CONC 30.7 g/dl (32.0-36.5); MEAN CORPUSCULAR VOLUME 109.3 fl (80.0-96.0); MONO # 0.6 10^3/uL (0.0-0.8); MONO % 9.5 % (2.0-8.0); NEUTROPHILS # 3.9 10^3/uL (1.5-8.5); NEUTROPHILS % 60.2 % (36.0-66.0); PLATELET COUNT, AUTOMATED 230 10^3/uL (150-450); RED BLOOD COUNT 2.59 10^6/uL (4.30-6.10); WHITE BLOOD COUNT 6.5 10^3/uL (4.0-10.0)
[2022-11-13 13:50] LABS: IRON (FE) 94 UG/DL (65-175)
[2022-11-13 13:51] LABS: ALBUMIN 3.4 G/DL (3.2-5.2); ALKALINE PHOSPHATASE 99 U/L (46-116); ALT/SGPT 59 U/L (7.0-40); AST/SGOT 57 U/L (<34); BILIRUBIN,TOTAL 0.5 MG/DL (0.3-1.2); BLOOD UREA NITROGEN 23 MG/DL (9-23); CALCIUM LEVEL 9.6 MG/DL (8.3-10.6); CARBON DIOXIDE LEVEL 26 MMOL/L (20-31); CHLORIDE LEVEL 106 MMOL/L (98-107); CREATININE FOR GFR 0.85 MG/DL (0.70-1.30); FERRITIN 263.9 NG/ML (10.5-307.3); GLOMERULAR FILTRATION RATE > 60.0 (>42); GLUCOSE, FASTING 94 MG/DL (74-106); PERCENT SATURATION 34.2 % (19.7-50.0); SODIUM LEVEL 140 MMOL/L (136-145); TOTAL IRON BINDING CAPACITY 275 UG/DL (250-425); TOTAL PROTEIN 6.5 G/DL (5.7-8.2)
== END ==
LOC: M PLALAB 11:58
PROVIDERS: ATTEND Physician Assistant
DX: D64.9 Anemia, unspecified (principal)

== ENCOUNTER → 2022-11-21 | Outpatient (CLI) | payer MEDICARE, BC ==
[~2022-11-21] VITALS: Ht 177.8 cm; Wt 102.2 kg
[~2022-11-21] MED LIST changes: +FUROSEMIDE 40MG/4ML VIAL IV ONE
[2022-11-21 08:15] VITALS: BP 136/65
[2022-11-21 10:15] VITALS: BP 117/55
[2022-11-21 11:15] VITALS: BP 150/68
[2022-11-21 12:00] VITALS: BP 143/64
== END ==
LOC: M INFU 08:13
PROVIDERS: ATTEND Family Medicine
DX: D64.9 Anemia, unspecified (principal); Z88.8 Allergy status to other drugs, medicaments and biological substances
CPT/HCPCS: 36430; 86850; 86900; 86901; 86920; P9016

== ENCOUNTER → 2022-11-26 | Outpatient (CLI) | payer MEDICARE, BC ==
[~2022-11-26] MED LIST changes: -FUROSEMIDE 40MG/4ML VIAL IV ONE
[2022-11-26 13:46] LABS: BASO % 0.3 % (0.0-1.0); EOS # 0.1 10^3/uL (0.0-0.5); EOS % 1.7 % (0.0-3.0); HEMATOCRIT 31.6 % (42.0-52.0); HEMOGLOBIN 9.9 g/dl (13.5-17.5); LYMPH # 1.6 10^3/uL (1.5-5.0); LYMPH % 22.2 % (24.0-44.0); MEAN CORPUSCULAR HEMOGLOBIN 33.8 pg (27.0-33.0); MEAN CORPUSCULAR HGB CONC 31.3 g/dl (32.0-36.5); MEAN CORPUSCULAR VOLUME 107.8 fl (80.0-96.0); MONO # 0.7 10^3/uL (0.0-0.8); MONO % 9.3 % (2.0-8.0); NEUTROPHILS # 4.7 10^3/uL (1.5-8.5); NEUTROPHILS % 66.1 % (36.0-66.0); PLATELET COUNT, AUTOMATED 216 10^3/uL (150-450); RED BLOOD COUNT 2.93 10^6/uL (4.30-6.10); WHITE BLOOD COUNT 7.1 10^3/uL (4.0-10.0)
[2022-11-26 13:56] LABS: INR 1.01; PARTIAL THROMBOPLASTIN TIME 31.4 SECONDS (24.8-34.2); PROTHROMBIN TIME 13.5 SECONDS (12.5-14.5)
[2022-11-26 14:13] LABS: MAGNESIUM LEVEL 2.1 MG/DL (1.8-2.4)
[2022-11-26 14:14] LABS: ALBUMIN 3.8 G/DL (3.2-5.2); ALKALINE PHOSPHATASE 112 U/L (46-116); ALT/SGPT 66 U/L (7.0-40); AST/SGOT 54 U/L (<34); BILIRUBIN,TOTAL 0.7 MG/DL (0.3-1.2); BLOOD UREA NITROGEN 21 MG/DL (9-23); CALCIUM LEVEL 9.3 MG/DL (8.3-10.6); CARBON DIOXIDE LEVEL 30 MMOL/L (20-31); CHLORIDE LEVEL 103 MMOL/L (98-107); CREATININE FOR GFR 0.84 MG/DL (0.70-1.30); GLOMERULAR FILTRATION RATE > 60.0 (>42); GLUCOSE, FASTING 100 MG/DL (74-106); POTASSIUM SERUM 4.9 MMOL/L (3.5-5.1); SODIUM LEVEL 139 MMOL/L (136-145); TOTAL PROTEIN 6.7 G/DL (5.7-8.2)
== END ==
LOC: M PLALAB 10:42
PROVIDERS: ATTEND Physician Assistant
DX: R07.9 Chest pain, unspecified (principal)

== ENCOUNTER → 2022-12-04 | Outpatient (CLI) | payer MEDICARE, BC ==
[2022-12-04 15:20] LABS: BASO % 0.6 % (0.0-1.0); EOS # 0.1 10^3/uL (0.0-0.5); EOS % 1.5 % (0.0-3.0); HEMATOCRIT 30.2 % (42.0-52.0); HEMOGLOBIN 9.6 g/dl (13.5-17.5); LYMPH % 29.9 % (24.0-44.0); MEAN CORPUSCULAR HEMOGLOBIN 34.8 pg (27.0-33.0); MEAN CORPUSCULAR HGB CONC 31.8 g/dl (32.0-36.5); MEAN CORPUSCULAR VOLUME 109.4 fl (80.0-96.0); MONO # 0.7 10^3/uL (0.0-0.8); MONO % 10.9 % (2.0-8.0); NEUTROPHILS # 3.7 10^3/uL (1.5-8.5); NEUTROPHILS % 56.8 % (36.0-66.0); PLATELET COUNT, AUTOMATED 211 10^3/uL (150-450); RED BLOOD COUNT 2.76 10^6/uL (4.30-6.10); WHITE BLOOD COUNT 6.5 10^3/uL (4.0-10.0)
[2022-12-04 15:24] LABS: ALBUMIN 3.8 G/DL (3.2-5.2); ALKALINE PHOSPHATASE 109 U/L (46-116); ALT/SGPT 65 U/L (7.0-40); AST/SGOT 61 U/L (<34); BILIRUBIN,TOTAL 0.9 MG/DL (0.3-1.2); BLOOD UREA NITROGEN 23 MG/DL (9-23); CALCIUM LEVEL 9.7 MG/DL (8.3-10.6); CARBON DIOXIDE LEVEL 30 MMOL/L (20-31); CHLORIDE LEVEL 102 MMOL/L (98-107); CREATININE FOR GFR 0.89 MG/DL (0.70-1.30); GLOMERULAR FILTRATION RATE > 60.0 (>42); GLUCOSE, FASTING 88 MG/DL (74-106); POTASSIUM SERUM 4.8 MMOL/L (3.5-5.1); SODIUM LEVEL 140 MMOL/L (136-145); TOTAL PROTEIN 6.8 G/DL (5.7-8.2)
[2022-12-04 15:27] LABS: FERRITIN 282.9 NG/ML (10.5-307.3)
== END ==
LOC: M PLALAB 11:46
PROVIDERS: ATTEND Family Medicine
DX: I10 Essential (primary) hypertension (principal); D50.9 Iron deficiency anemia, unspecified

== ENCOUNTER → 2022-12-12 | Outpatient (CLI) | payer MEDICARE, BC | LOC: M CARPUL 11:33 | PROVIDERS: ATTEND Physician Assistant | DX: R94.31 Abnormal electrocardiogram [ECG] [EKG] (principal) ==

== ENCOUNTER → 2023-03-20 | Outpatient (CLI) | payer MEDICARE, BC ==
[2023-03-20 14:08] LABS: PERCENT SATURATION 30.1 % (19.7-50.0)
== END ==
LOC: M PLALAB 10:41
PROVIDERS: ATTEND Physician Assistant
DX: I10 Essential (primary) hypertension (principal); D63.8 Anemia in other chronic diseases classified elsewhere

== ENCOUNTER → 2023-03-20 | Outpatient (CLI) | payer MEDICARE, BC ==
[2023-03-20 14:08] LABS: ALBUMIN 3.9 G/DL (3.2-5.2); ALKALINE PHOSPHATASE 96 U/L (46-116); ALT/SGPT 46 U/L (7.0-40); AST/SGOT 44 U/L (<34); BILIRUBIN,TOTAL 0.6 MG/DL (0.3-1.2); BLOOD UREA NITROGEN 32 MG/DL (9-23); CALCIUM LEVEL 9.1 MG/DL (8.3-10.6); CARBON DIOXIDE LEVEL 28 MMOL/L (20-31); CHLORIDE LEVEL 105 MMOL/L (98-107); CREATININE FOR GFR 0.98 MG/DL (0.70-1.30); GLOMERULAR FILTRATION RATE > 60.0 (>42); GLUCOSE, FASTING 94 MG/DL (74-106); MAGNESIUM LEVEL 1.7 MG/DL (1.8-2.4); POTASSIUM SERUM 4.8 MMOL/L (3.5-5.1); SODIUM LEVEL 139 MMOL/L (136-145); TOTAL PROTEIN 6.8 G/DL (5.7-8.2)
[2023-03-20 14:11] LABS: FERRITIN 461.5 NG/ML (10.5-307.3)
[2023-03-20 14:14] LABS: BASO % 0.4 % (0.0-1.0); EOS # 0.1 10^3/uL (0.0-0.5); EOS % 1.5 % (0.0-3.0); HEMATOCRIT 28.9 % (42.0-52.0); HEMOGLOBIN 9.3 g/dl (13.5-17.5); LYMPH # 1.9 10^3/uL (1.5-5.0); LYMPH % 27.5 % (24.0-44.0); MEAN CORPUSCULAR HEMOGLOBIN 34.3 pg (27.0-33.0); MEAN CORPUSCULAR HGB CONC 32.2 g/dl (32.0-36.5); MEAN CORPUSCULAR VOLUME 106.6 fl (80.0-96.0); MONO # 0.6 10^3/uL (0.0-0.8); MONO % 8.3 % (2.0-8.0); NEUTROPHILS # 4.2 10^3/uL (1.5-8.5); PLATELET COUNT, AUTOMATED 208 10^3/uL (150-450); RED BLOOD COUNT 2.71 10^6/uL (4.30-6.10); WHITE BLOOD COUNT 6.8 10^3/uL (4.0-10.0)
== END ==
LOC: M PLALAB 10:39
PROVIDERS: ATTEND Family Medicine
DX: I10 Essential (primary) hypertension (principal); D63.8 Anemia in other chronic diseases classified elsewhere; D75.89 Other specified diseases of blood and blood-forming organs; I25.10 Atherosclerotic heart disease of native coronary artery without angina pectoris

== ENCOUNTER → 2023-05-12 | Outpatient (REF) | payer MEDICARE, BC | LOC: M SFHCPLAZ 15:30 | PROVIDERS: ATTEND Family Medicine | DX: D75.89 Other specified diseases of blood and blood-forming organs (principal); Z12.5 Encounter for screening for malignant neoplasm of prostate; E78.2 Mixed hyperlipidemia; R73.01 Impaired fasting glucose; K76.0 Fatty (change of) liver, not elsewhere classified ==

== ENCOUNTER → 2023-05-13 | Outpatient (CLI) | payer MEDICARE, BC ==
[2023-05-13 10:43] LABS: BASO % 0.4 % (0.0-1.0); EOS # 0.2 10^3/uL (0.0-0.5); EOS % 2.9 % (0.0-3.0); HEMATOCRIT 28.7 % (42.0-52.0); HEMOGLOBIN 9.3 g/dl (13.5-17.5); LYMPH # 1.5 10^3/uL (1.5-5.0); LYMPH % 29.3 % (24.0-44.0); MEAN CORPUSCULAR HEMOGLOBIN 34.4 pg (27.0-33.0); MEAN CORPUSCULAR HGB CONC 32.4 g/dl (32.0-36.5); MEAN CORPUSCULAR VOLUME 106.3 fl (80.0-96.0); MONO # 0.5 10^3/uL (0.0-0.8); MONO % 10.3 % (2.0-8.0); NEUTROPHILS % 56.7 % (36.0-66.0); PLATELET COUNT, AUTOMATED 210 10^3/uL (150-450); WHITE BLOOD COUNT 5.3 10^3/uL (4.0-10.0)
[2023-05-13 11:06] LABS: HEMOGLOBIN A1c 5.7 % (4.0-6.0)
[2023-05-13 11:20] LABS: CHOLESTEROL RISK RATIO 2.29 (<5); HDL CHOLESTEROL 42.2 MG/DL (>40); LDL CHOLESTEROL 35.8 MG/DL (<100); NON-HDL-C 54.8 MG/DL
[2023-05-13 11:22] LABS: FREE T4 0.72 NG/DL (0.89-1.76)
[2023-05-13 11:23] LABS: THYROID STIMULATING HORMONE 2.504 uIU/ML (0.55-4.78)
[2023-05-14 14:23] LABS: JAK2 MUTATIONS FOR PATH SENDOU See Pathology Report
[2023-05-15 16:13] LABS: ERYTHROPOIETIN 17.3 mIU/mL (2.6-18.5); SOLUBLE TRANSFERRIN RECEPTOR 19.9 nmol/L (12.2-27.3)
== END ==
LOC: M PLALAB 09:06
PROVIDERS: ATTEND Family Medicine
DX: D75.89 Other specified diseases of blood and blood-forming organs (principal); E78.00 Pure hypercholesterolemia, unspecified; Z12.5 Encounter for screening for malignant neoplasm of prostate
CPT/HCPCS: 36415; 80061; 82105; 82550; 82668; 83036; 83520; 84155; 84165; 84439; 84443; 85025; 85046; 86335; 88300; G0103

== ENCOUNTER → 2023-08-11 | Outpatient (CLI) | payer MEDICARE, BC ==
[~2023-08-11] MED LIST changes: +LIDOCAINE 1% MDV 20ML VIAL As Ordered ONE
[2023-08-11 07:55] VITALS: TEMP 97.3
[2023-08-11 08:10] LABS: BASO % 0.3 % (0.0-1.0); EOS # 0.1 10^3/uL (0.0-0.5); EOS % 1.9 % (0.0-3.0); HEMATOCRIT 28.8 % (42.0-52.0); HEMOGLOBIN 9.5 g/dl (13.5-17.5); LYMPH # 1.9 10^3/uL (1.5-5.0); LYMPH % 28.4 % (24.0-44.0); MEAN CORPUSCULAR HEMOGLOBIN 34.5 pg (27.0-33.0); MEAN CORPUSCULAR VOLUME 104.7 fl (80.0-96.0); MONO # 0.6 10^3/uL (0.0-0.8); MONO % 9.4 % (2.0-8.0); NEUTROPHILS % 59.7 % (36.0-66.0); PLATELET COUNT, AUTOMATED 202 10^3/uL (150-450); RED BLOOD COUNT 2.75 10^6/uL (4.30-6.10); WHITE BLOOD COUNT 6.7 10^3/uL (4.0-10.0)
[2023-08-11 08:23] LABS: INR 1.16; PROTHROMBIN TIME 14.5 SECONDS (12.5-14.5)
[2023-08-11 08:24] LABS: PARTIAL THROMBOPLASTIN TIME 32.5 SECONDS (24.8-34.2)
[2023-08-11 09:25] VITALS: BP 169/74; O2SAT 96
== END ==
LOC: M IRPRO 07:39
PROVIDERS: ATTEND Family Medicine
DX: D53.9 Nutritional anemia, unspecified (principal); Z79.01 Long term (current) use of anticoagulants; Z15.89 Genetic susceptibility to other disease

== ENCOUNTER → 2023-09-08 | Outpatient (REF) | payer MEDICARE, BC ==
[~2023-09-08] MED LIST changes: -LIDOCAINE 1% MDV 20ML VIAL As Ordered ONE; -OXYB5TAB10 PO; +OXYB5TAB11 PO
== END ==
LOC: M SFHCPLAZ 16:58
PROVIDERS: ATTEND Family Medicine
DX: D46.9 Myelodysplastic syndrome, unspecified (principal)

== ENCOUNTER → 2023-10-30 | Outpatient (REF) | payer MEDICARE, BC | LOC: M SFHCPLAZ 14:54 | PROVIDERS: ATTEND Family Medicine | DX: D46.9 Myelodysplastic syndrome, unspecified (principal); I50.32 Chronic diastolic (congestive) heart failure; E78.2 Mixed hyperlipidemia ==

== ENCOUNTER → 2023-11-12 | Outpatient (CLI) | payer BC, MEDICARE | LOC: M LAB 16:48 | PROVIDERS: ATTEND Urology | DX: D09.0 Carcinoma in situ of bladder (principal); R97.20 Elevated prostate specific antigen [PSA] ==

== ENCOUNTER → 2024-06-20 | Outpatient (CLI) | payer MEDICARE, BC ==
[~2024-06-20] MED LIST changes: -OXYB5TAB11 PO; +OXYB5TAB14 PO
[2024-06-20 17:32] LABS: BASO % 0.3 % (0.0-1.0); EOS # 0.1 10^3/uL (0.0-0.5); EOS % 1.7 % (0.0-3.0); HEMATOCRIT 28.8 % (42.0-52.0); HEMOGLOBIN 9.3 g/dl (13.5-17.5); LYMPH # 1.5 10^3/uL (1.5-5.0); LYMPH % 21.4 % (24.0-44.0); MEAN CORPUSCULAR HEMOGLOBIN 34.1 pg (27.0-33.0); MEAN CORPUSCULAR HGB CONC 32.3 g/dl (32.0-36.5); MEAN CORPUSCULAR VOLUME 105.5 fl (80.0-96.0); MONO # 0.6 10^3/uL (0.0-0.8); MONO % 8.1 % (2.0-8.0); NEUTROPHILS # 4.8 10^3/uL (1.5-8.5); NEUTROPHILS % 67.9 % (36.0-66.0); PLATELET COUNT, AUTOMATED 240 10^3/uL (150-450); RED BLOOD COUNT 2.73 10^6/uL (4.30-6.10); WHITE BLOOD COUNT 7.1 10^3/uL (4.0-10.0)
[2024-06-20 17:43] LABS: IRON (FE) 115 UG/DL (65-175)
[2024-06-20 17:44] LABS: ALBUMIN 3.7 G/DL (3.2-5.2); ALKALINE PHOSPHATASE 119 U/L (46-116); ALT/SGPT 45 U/L (7.0-40); AST/SGOT 47 U/L (<34); BILIRUBIN,TOTAL 0.9 MG/DL (0.3-1.2); BLOOD UREA NITROGEN 35 MG/DL (9-23); CALCIUM LEVEL 9.4 MG/DL (8.3-10.6); CARBON DIOXIDE LEVEL 27 MMOL/L (20-31); CHLORIDE LEVEL 103 MMOL/L (98-107); CREATININE FOR GFR 1.19 MG/DL (0.70-1.30); GLOMERULAR FILTRATION RATE > 60.0 (>42); GLUCOSE, FASTING 90 MG/DL (74-106); PERCENT SATURATION 39.7 % (19.7-50.0); SODIUM LEVEL 136 MMOL/L (136-145); TOTAL IRON BINDING CAPACITY 290 UG/DL (250-425); TOTAL PROTEIN 7.1 G/DL (5.7-8.2)
[2024-06-20 17:45] LABS: FREE T4 0.73 NG/DL (0.89-1.76)
[2024-06-20 17:46] LABS: THYROID STIMULATING HORMONE 2.939 uIU/ML (0.55-4.78)
== END ==
LOC: M LAB 14:16
PROVIDERS: ATTEND Family Medicine
DX: D46.9 Myelodysplastic syndrome, unspecified (principal); I50.32 Chronic diastolic (congestive) heart failure

== ENCOUNTER → 2024-06-20 | Outpatient (REF) | payer MEDICARE, BC | LOC: M SFHCPLAZ 18:57 | PROVIDERS: ATTEND Family Medicine | DX: D46.9 Myelodysplastic syndrome, unspecified (principal); I50.32 Chronic diastolic (congestive) heart failure; K74.00 Hepatic fibrosis, unspecified; Z12.5 Encounter for screening for malignant neoplasm of prostate ==

== ENCOUNTER → 2024-07-20 | Outpatient (CLI) | payer MEDICARE, BC ==
[2024-07-20 10:23] LABS: TOTAL IRON BINDING CAPACITY 271 UG/DL (250-425)
[2024-07-20 10:24] LABS: ALBUMIN 3.6 G/DL (3.2-5.2); ALKALINE PHOSPHATASE 100 U/L (46-116); ALT/SGPT 37 U/L (7.0-40); AST/SGOT 42 U/L (<34); BILIRUBIN,TOTAL 0.8 MG/DL (0.3-1.2); BLOOD UREA NITROGEN 28 MG/DL (9-23); CALCIUM LEVEL 9.2 MG/DL (8.3-10.6); CARBON DIOXIDE LEVEL 31 MMOL/L (20-31); CHLORIDE LEVEL 104 MMOL/L (98-107); CREATININE FOR GFR 1.24 MG/DL (0.70-1.30); GLOMERULAR FILTRATION RATE > 60.0 (>42); GLUCOSE, FASTING 102 MG/DL (74-106); IRON (FE) 91 UG/DL (65-175); MAGNESIUM LEVEL 2.2 MG/DL (1.8-2.4); PERCENT SATURATION 33.6 % (19.7-50.0); POTASSIUM SERUM 4.5 MMOL/L (3.5-5.1); SODIUM LEVEL 138 MMOL/L (136-145); TOTAL PROTEIN 7.1 G/DL (5.7-8.2)
[2024-07-20 10:25] LABS: PSA SCREENING 0.04 NG/ML (< 4.00)
[2024-07-20 10:30] LABS: BASO % 0.4 % (0.0-1.0); EOS # 0.1 10^3/uL (0.0-0.5); EOS % 1.9 % (0.0-3.0); HEMATOCRIT 28.3 % (42.0-52.0); HEMOGLOBIN 9.1 g/dl (13.5-17.5); LYMPH # 1.3 10^3/uL (1.5-5.0); MEAN CORPUSCULAR HEMOGLOBIN 33.7 pg (27.0-33.0); MEAN CORPUSCULAR HGB CONC 32.2 g/dl (32.0-36.5); MEAN CORPUSCULAR VOLUME 104.8 fl (80.0-96.0); MONO # 0.4 10^3/uL (0.0-0.8); MONO % 8.3 % (2.0-8.0); NEUTROPHILS # 3.3 10^3/uL (1.5-8.5); PLATELET COUNT, AUTOMATED 206 10^3/uL (150-450); WHITE BLOOD COUNT 5.2 10^3/uL (4.0-10.0)
[2024-07-20 10:32] LABS: INR 1.24; PROTHROMBIN TIME 15.2 SECONDS (12.5-14.5)
== END ==
LOC: M PLALAB 07:36
PROVIDERS: ATTEND Family Medicine
DX: D46.9 Myelodysplastic syndrome, unspecified (principal); Z12.5 Encounter for screening for malignant neoplasm of prostate; I50.32 Chronic diastolic (congestive) heart failure; K74.00 Hepatic fibrosis, unspecified

== ENCOUNTER → 2024-07-20 | Outpatient (CLI) | payer MEDICARE, BC | LOC: M WHC 07:31 | PROVIDERS: ATTEND Family Medicine | DX: K74.00 Hepatic fibrosis, unspecified (principal); Z12.5 Encounter for screening for malignant neoplasm of prostate; R93.2 Abnormal findings on diagnostic imaging of liver and biliary tract; R16.1 Splenomegaly, not elsewhere classified; R93.422 Abnormal radiologic findings on diagnostic imaging of left kidney; D46.9 Myelodysplastic syndrome, unspecified; I50.32 Chronic diastolic (congestive) heart failure | CPT/HCPCS: 36415; 76700; 80053; 82105; 82728; 83550; 83625; 83735; 83880; 84238; 85025; 85610; 85730; G0103 ==

== ENCOUNTER → 2024-08-03 | Outpatient (CLI) | payer MEDICARE, BC ==
[2024-08-03 12:16] LABS: BASO % 0.4 % (0.0-1.0); EOS # 0.1 10^3/uL (0.0-0.5); HEMATOCRIT 28.4 % (42.0-52.0); HEMOGLOBIN 9.2 g/dl (13.5-17.5); LYMPH # 1.2 10^3/uL (1.5-5.0); LYMPH % 24.6 % (24.0-44.0); MEAN CORPUSCULAR HEMOGLOBIN 34.3 pg (27.0-33.0); MEAN CORPUSCULAR HGB CONC 32.4 g/dl (32.0-36.5); MONO # 0.4 10^3/uL (0.0-0.8); MONO % 7.9 % (2.0-8.0); NEUTROPHILS # 3.2 10^3/uL (1.5-8.5); NEUTROPHILS % 64.9 % (36.0-66.0); PLATELET COUNT, AUTOMATED 208 10^3/uL (150-450); RED BLOOD COUNT 2.68 10^6/uL (4.30-6.10)
[2024-08-03 12:24] LABS: INR 1.21; PARTIAL THROMBOPLASTIN TIME 31.1 SECONDS (24.8-34.2); PROTHROMBIN TIME 14.9 SECONDS (12.5-14.5)
[2024-08-03 12:48] LABS: PSA SCREENING 0.04 NG/ML (< 4.00)
[2024-08-03 12:51] LABS: ALBUMIN 3.6 G/DL (3.2-5.2); BILIRUBIN,TOTAL 0.9 MG/DL (0.3-1.2); CREATININE FOR GFR 1.32 MG/DL (0.70-1.30); POTASSIUM SERUM 4.7 MMOL/L (3.5-5.1); TOTAL PROTEIN 7.1 G/DL (5.7-8.2)
[2024-08-03 12:52] LABS: FERRITIN 320.1 NG/ML (10.5-307.3)
[2024-08-08 13:57] LABS: SOLUBLE TRANSFERRIN RECEPTOR 1.17 mg/L (0.76-1.76)
== END ==
LOC: M PLALAB 11:23
PROVIDERS: ATTEND Family Medicine
DX: D46.9 Myelodysplastic syndrome, unspecified (principal); Z12.5 Encounter for screening for malignant neoplasm of prostate
CPT/HCPCS: 36415; 80053; 82105; 82728; 83550; 83625; 83735; 83880; 84238; 85025; 85610; 85730; G0103

== ENCOUNTER → 2024-08-17 | Outpatient (CLI) | payer MEDICARE, BC ==
[~2024-08-17] MED LIST changes: +GASTROGRAFIN SOLUTION 30ML As Ordered ONE; +ISOVUE-370 76% 100ML VIAL As Ordered ONE
== END ==
LOC: M RAD 10:52
PROVIDERS: ATTEND Family Medicine
DX: N28.89 Other specified disorders of kidney and ureter (principal); D46.9 Myelodysplastic syndrome, unspecified; C67.9 Malignant neoplasm of bladder, unspecified
CPT/HCPCS: 74178; Q9967

== ENCOUNTER 2024-09-09 23:43 | Observation (INO) | payer MEDICARE, BC ==
[~2024-09-09] VITALS: Ht 177.8 cm; Wt 100.7 kg
[~2024-09-09 23:43] MED LIST changes: -GASTROGRAFIN SOLUTION 30ML As Ordered ONE; -ISOVUE-370 76% 100ML VIAL As Ordered ONE
[2024-09-10 00:58] LABS: VENOUS BASE EXCESS 5.7 (-2.0-2.0); VENOUS HCO3 29.6 MMOL/L (23.0-27.0); VENOUS O2 SATURATION 99.4 % (60.0-80.0); VENOUS PARTIAL PRESSURE CO2 40.1 mmHg (38.0-50.0); VENOUS PH 7.486 UNITS (7.330-7.430); VENOUS STANDARD HCO3 29.7 MMOL/L; VENOUS TOTAL CO2 30.8 MMOL/L (24.0-28.0)
[2024-09-10 01:07] LABS: BASO % 0.3 % (0.0-1.0); EOS # 0.3 10^3/uL (0.0-0.5); EOS % 3.9 % (0.0-3.0); HEMATOCRIT 25.4 % (42.0-52.0); HEMOGLOBIN 8.3 g/dl (13.5-17.5); LYMPH # 1.2 10^3/uL (1.5-5.0); LYMPH % 16.6 % (24.0-44.0); MEAN CORPUSCULAR HEMOGLOBIN 33.2 pg (27.0-33.0); MEAN CORPUSCULAR HGB CONC 32.7 g/dl (32.0-36.5); MEAN CORPUSCULAR VOLUME 101.6 fl (80.0-96.0); MONO # 0.7 10^3/uL (0.0-0.8); MONO % 8.9 % (2.0-8.0); NEUTROPHILS # 5.1 10^3/uL (1.5-8.5); NEUTROPHILS % 69.9 % (36.0-66.0); PLATELET COUNT, AUTOMATED 230 10^3/uL (150-450); WHITE BLOOD COUNT 7.3 10^3/uL (4.0-10.0)
[2024-09-10 01:19] LABS: INR 1.18; PARTIAL THROMBOPLASTIN TIME 38.1 SECONDS (24.8-34.2); PROTHROMBIN TIME 14.7 SECONDS (12.5-14.5)
[2024-09-10 01:35] LABS: CK-MB VALUE MASS 1.5 NG/ML (<3.6)
[2024-09-10 01:36] LABS: CPK CREATINE PHOSPHOKINASE 175 U/L (46-171); MB/CK RELATIVE INDEX 0.85 (< OR =4)
[2024-09-10 01:38] LABS: ALBUMIN 3.1 G/DL (3.2-5.2); ALKALINE PHOSPHATASE 198 U/L (46-116); ALT/SGPT 34 U/L (7.0-40); AST/SGOT 44 U/L (<34); BILIRUBIN,DIRECT 0.4 MG/DL (<0.4); BILIRUBIN,TOTAL 0.9 MG/DL (0.3-1.2); BLOOD UREA NITROGEN 28 MG/DL (9-23); CALCIUM LEVEL 9.2 MG/DL (8.3-10.6); CARBON DIOXIDE LEVEL 31 MMOL/L (20-31); CHLORIDE LEVEL 97 MMOL/L (98-107); CREATININE FOR GFR 1.07 MG/DL (0.70-1.30); GLOMERULAR FILTRATION RATE > 60.0 (>42); GLUCOSE, FASTING 99 MG/DL (74-106); POTASSIUM SERUM 4.3 MMOL/L (3.5-5.1); SODIUM LEVEL 134 MMOL/L (136-145); TOTAL PROTEIN 6.9 G/DL (5.7-8.2)
[2024-09-10] MEDS ORDERED: ISOVUE-370 76% 100ML VIAL As Ordered ONE (04:57)
[2024-09-10] MEDS: OXYMETAZOLINE 0.05% NASAL SPRAY (AFRIN) ONE (05:31)
[2024-09-10 05:40] LABS: CK-MB VALUE MASS 1.4 NG/ML (<3.6)
[2024-09-10 05:42] LABS: MB/CK RELATIVE INDEX 0.89 (< OR =4)
[2024-09-10] MEDS ORDERED: ACETAMINOPHEN 325 MG TAB PO PRN (10:05)
[2024-09-10 11:09] LABS: BASO % 0.3 % (0.0-1.0); EOS # 0.3 10^3/uL (0.0-0.5); EOS % 4.2 % (0.0-3.0); HEMOGLOBIN 8.6 g/dl (13.5-17.5); LYMPH # 0.9 10^3/uL (1.5-5.0); LYMPH % 14.3 % (24.0-44.0); MEAN CORPUSCULAR HEMOGLOBIN 32.5 pg (27.0-33.0); MEAN CORPUSCULAR HGB CONC 31.9 g/dl (32.0-36.5); MEAN CORPUSCULAR VOLUME 101.9 fl (80.0-96.0); MONO # 0.5 10^3/uL (0.0-0.8); MONO % 7.9 % (2.0-8.0); NEUTROPHILS # 4.7 10^3/uL (1.5-8.5); PLATELET COUNT, AUTOMATED 220 10^3/uL (150-450); RED BLOOD COUNT 2.65 10^6/uL (4.30-6.10); WHITE BLOOD COUNT 6.4 10^3/uL (4.0-10.0)
[2024-09-10] MEDS ORDERED: CLOP75TA99 PO (11:20)
[2024-09-10] MEDS ORDERED: OXYC-517 PO (11:20)
[2024-09-10] MEDS ORDERED: NITR0.4S14 SL (11:20)
[2024-09-10] MEDS ORDERED: SENN-121 PO (11:20)
[2024-09-10] MEDS ORDERED: ROSU20TA86 PO (11:20)
[2024-09-10] MEDS ORDERED: FLUT15.820 NARES (11:20)
[2024-09-10] MEDS ORDERED: TORS20TA2 PO (11:20)
[2024-09-10] MEDS ORDERED: ASPI81TA26 PO (11:21)
[2024-09-10] MEDS ORDERED: D3 S1CAP3 PO (11:21)
[2024-09-10] MEDS ORDERED: HOME MED LIST COMPLETE! XX SCH (11:25)
[2024-09-10] MEDS ORDERED: oxyCODONE 5MG TAB PO PRN (11:30)
[2024-09-10] MEDS ORDERED: NITROGLYCERIN 0.4MG SUBL TABLET SL PRN (11:30)
[2024-09-10 11:39] VITALS: BP 148/66; TEMP 96.5; O2SAT 96
[2024-09-10 11:40] LABS: ALBUMIN 3.3 G/DL (3.2-5.2); ALKALINE PHOSPHATASE 207 U/L (46-116); ALT/SGPT 35 U/L (7.0-40); AST/SGOT 39 U/L (<34); BILIRUBIN,TOTAL 0.9 MG/DL (0.3-1.2); BLOOD UREA NITROGEN 25 MG/DL (9-23); CALCIUM LEVEL 9.4 MG/DL (8.3-10.6); CARBON DIOXIDE LEVEL 30 MMOL/L (20-31); CHLORIDE LEVEL 98 MMOL/L (98-107); CREATININE FOR GFR 0.97 MG/DL (0.70-1.30); GLOMERULAR FILTRATION RATE > 60.0 (>42); GLUCOSE, FASTING 113 MG/DL (74-106); MAGNESIUM LEVEL 2.2 MG/DL (1.8-2.4); POTASSIUM SERUM 4.3 MMOL/L (3.5-5.1); SODIUM LEVEL 134 MMOL/L (136-145); TOTAL PROTEIN 7.3 G/DL (5.7-8.2)
[2024-09-10 11:57] LABS: LDH LACTATE DEHYDROGENASE 273 U/L (120-246)
[2024-09-10] MEDS: TAMSULOSIN 0.4 MG CAP PO SCH (13:42)
[2024-09-10] MEDS: CLOPIDOGREL 75 MG TAB PO SCH (13:42)
[2024-09-10] MEDS: ROSUVASTATIN 10 MG TAB (CRESTOR) PO SCH (13:42)
[2024-09-10] MEDS: ASPIRIN 81MG ENTERIC TABLET PO SCH (13:43)
[2024-09-10] MEDS: METOPROLOL TART 12.5 MG PER 1/2 TAB PO SCH (13:44)
[2024-09-10] MEDS: TORSEMIDE 20 MG TAB PO SCH (14:03)
[2024-09-10 14:33] LABS: PROCALCITONIN 0.18 ng/ml
[2024-09-10 15:35] VITALS: BP 124/57; TEMP 97; O2SAT 94
[2024-09-10 16:31] LABS: PH BODY FLUID 7.569 UNITS (NOT ESTABLISHED); SOURCE, BODY FLUID pH PLEURAL
[2024-09-10 16:45] LABS: SOURCE, BODY FLUID ALBUMIN PLEURAL
[2024-09-10 16:46] LABS: APPEARANCE, BODY FLUID CLOUDY (CLEAR); PLEURAL FL COLOR AMBER (COLORLESS); SOURCE, BODY FLUID PLEURAL
[2024-09-10 16:50] LABS: SOURCE, BODY FLUID GLUCOSE PLEURAL
[2024-09-10 16:51] LABS: SOURCE, BODY FLUID TRIG PLEURAL; TRIGLYCERIDE, BODY FLUID 52 MG/DL (NOT ESTABLISHED)
[2024-09-10 16:52] LABS: LDH, BODY FLUID 197 U/L (NOT ESTABLISHED); SOURCE, BODY FLUID LDH PLEURAL
[2024-09-10 16:53] LABS: CHOLESTEROL, BODY FLUID 63 MG/DL (NOT ESTABLISHED); SOURCE, BODY FLUID CHOL PLEURAL; SOURCE, BODY FLUID TOT PROTEIN PLEURAL; TOTAL PROTEIN, BODY FLUID 4.9 G/DL (NOT ESTABLISHED)
[2024-09-10] MEDS: ENOXAPARIN 40MG/0.4ML SYRINGE (J1650 PER 10MG) SC SCH (18:01)
[2024-09-10 19:26] VITALS: BP 135/61; TEMP 98.1; O2SAT 94
[2024-09-10] MEDS: COLCHICINE 0.6 MG TABLET PO SCH (20:53)
[2024-09-10] MEDS: PANTOPRAZOLE 40MG TAB (PROTONIX) PO SCH (20:56)
[2024-09-10] MEDS: SENOKOT S TAB PO PRN (21:04)
[2024-09-10] MEDS: IBUPROFEN 400MG TAB PO SCH (21:05)
[2024-09-10 23:29] VITALS: BP 133/60; TEMP 97.6; O2SAT 95
[2024-09-11 03:03] VITALS: BP 138/64; TEMP 97.2; O2SAT 96
[2024-09-11 07:00] VITALS: BP 122/60; TEMP 97.8; O2SAT 96
[2024-09-11 07:18] LABS: BASO % 0.4 % (0.0-1.0); EOS # 0.3 10^3/uL (0.0-0.5); EOS % 5.3 % (0.0-3.0); HEMATOCRIT 25.1 % (42.0-52.0); HEMOGLOBIN 8.1 g/dl (13.5-17.5); LYMPH # 0.8 10^3/uL (1.5-5.0); LYMPH % 14.7 % (24.0-44.0); MEAN CORPUSCULAR HEMOGLOBIN 33.8 pg (27.0-33.0); MEAN CORPUSCULAR HGB CONC 32.3 g/dl (32.0-36.5); MEAN CORPUSCULAR VOLUME 104.6 fl (80.0-96.0); MONO # 0.5 10^3/uL (0.0-0.8); MONO % 7.9 % (2.0-8.0); NEUTROPHILS # 4.1 10^3/uL (1.5-8.5); NEUTROPHILS % 71.3 % (36.0-66.0); PLATELET COUNT, AUTOMATED 197 10^3/uL (150-450); WHITE BLOOD COUNT 5.7 10^3/uL (4.0-10.0)
[2024-09-11 07:49] LABS: ALBUMIN 2.9 G/DL (3.2-5.2); ALKALINE PHOSPHATASE 196 U/L (46-116); ALT/SGPT 30 U/L (7.0-40); AST/SGOT 37 U/L (<34); BILIRUBIN,TOTAL 0.8 MG/DL (0.3-1.2); BLOOD UREA NITROGEN 24 MG/DL (9-23); CALCIUM LEVEL 9.3 MG/DL (8.3-10.6); CARBON DIOXIDE LEVEL 32 MMOL/L (20-31); CHLORIDE LEVEL 100 MMOL/L (98-107); CREATININE FOR GFR 1.11 MG/DL (0.70-1.30); GLOMERULAR FILTRATION RATE > 60.0 (>42); GLUCOSE, FASTING 118 MG/DL (74-106); POTASSIUM SERUM 4.6 MMOL/L (3.5-5.1); SODIUM LEVEL 135 MMOL/L (136-145); TOTAL PROTEIN 6.7 G/DL (5.7-8.2)
[2024-09-11] MEDS ORDERED: PROT1TAB2 PO (08:43)
[2024-09-11] MEDS ORDERED: COLC0.6T47 PO (08:44)
[2024-09-11 10:00] VITALS: BP 122/60
== END 2024-09-11 11:01 | disposition home or self-care (01) ==
LOC: M ED 23:43 → M ED INP 23:46 → M PCU 09-10 11:34
PROVIDERS: ADMIT Internal Medicine; ATTEND Internal Medicine
DX: J90 Pleural effusion, not elsewhere classified (principal); I31.39 Other pericardial effusion (noninflammatory); J98.11 Atelectasis; I25.10 Atherosclerotic heart disease of native coronary artery without angina pectoris; Z95.1 Presence of aortocoronary bypass graft; Z98.890 Other specified postprocedural states; I50.32 Chronic diastolic (congestive) heart failure; I11.0 Hypertensive heart disease with heart failure; R06.00 Dyspnea, unspecified; G47.33 Obstructive sleep apnea (adult) (pediatric); E78.5 Hyperlipidemia, unspecified; N40.0 Benign prostatic hyperplasia without lower urinary tract symptoms; D46.9 Myelodysplastic syndrome, unspecified; I25.2 Old myocardial infarction; Z98.61 Coronary angioplasty status; K76.0 Fatty (change of) liver, not elsewhere classified; Z85.51 Personal history of malignant neoplasm of bladder; Z90.49 Acquired absence of other specified parts of digestive tract; Z98.52 Vasectomy status; Z98.41 Cataract extraction status, right eye; Z98.42 Cataract extraction status, left eye; Z82.49 Family history of ischemic heart disease and other diseases of the circulatory system; Z80.41 Family history of malignant neoplasm of ovary; Z87.891 Personal history of nicotine dependence; Z79.899 Other long term (current) drug therapy; Z79.02 Long term (current) use of antithrombotics/antiplatelets; Z79.82 Long term (current) use of aspirin; Z88.6 Allergy status to analgesic agent; Z88.8 Allergy status to other drugs, medicaments and biological substances
CPT/HCPCS: 32554; 36415; 71045; 71275; 80048; 80053; 80076; 82042; 82465; 82550; 82553; 82803; 82945; 83605; 83615; 83735; 83880; 83986; 84145; 84157; 84478; 84484; 85025; 85610; 85730; 87040; 87486; 87581; 87633; 87798; 89051; 93005; 93041; 93306; 94760; 96372; 99285; G0378; J1650; Q9967

== ENCOUNTER 2024-09-19 03:11 | Emergency (ER) | payer MEDICARE, BC ==
[~2024-09-19] VITALS: Ht 177.8 cm; Wt 98.2 kg
[~2024-09-19 03:11] MED LIST changes: +ASPI81TA26 PO; +CLOP75TA99 PO; +COLC0.6T47 PO; +D3 S1CAP3 PO; +FLUT15.820 NARES; +NITR0.4S14 SL; +OXYC-517 PO; +PROT1TAB2 PO; +ROSU20TA86 PO; +SENN-121 PO; +TORS20TA2 PO
[2024-09-19] MEDS: MORPHINE 2 MG/ML 1ML VIAL IV PRN (04:00)
[2024-09-19 04:01] LABS: EOS # 0.1 10^3/uL (0.0-0.5); EOS % 3.1 % (0.0-3.0); HEMATOCRIT 28.1 % (42.0-52.0); HEMOGLOBIN 9.3 g/dl (13.5-17.5); LYMPH # 1.2 10^3/uL (1.5-5.0); LYMPH % 30.4 % (24.0-44.0); MEAN CORPUSCULAR HEMOGLOBIN 33.3 pg (27.0-33.0); MEAN CORPUSCULAR HGB CONC 33.1 g/dl (32.0-36.5); MEAN CORPUSCULAR VOLUME 100.7 fl (80.0-96.0); MONO # 0.5 10^3/uL (0.0-0.8); MONO % 11.8 % (2.0-8.0); NEUTROPHILS % 53.4 % (36.0-66.0); PLATELET COUNT, AUTOMATED 251 10^3/uL (150-450); RED BLOOD COUNT 2.79 10^6/uL (4.30-6.10); WHITE BLOOD COUNT 3.8 10^3/uL (4.0-10.0)
[2024-09-19 04:08] LABS: BLOOD UREA NITROGEN 23 MG/DL (9-23); CALCIUM LEVEL 9.6 MG/DL (8.3-10.6); CARBON DIOXIDE LEVEL 25 MMOL/L (20-31); CHLORIDE LEVEL 101 MMOL/L (98-107); CK-MB VALUE MASS 1.8 NG/ML (<3.6); CPK CREATINE PHOSPHOKINASE 153 U/L (46-171); GLOMERULAR FILTRATION RATE > 60.0 (>42); GLUCOSE, FASTING 116 MG/DL (74-106); MB/CK RELATIVE INDEX 1.17 (< OR =4); POTASSIUM SERUM 4.2 MMOL/L (3.5-5.1); SODIUM LEVEL 134 MMOL/L (136-145)
[2024-09-19] MEDS ORDERED: ISOVUE-370 76% 100ML VIAL As Ordered ONE (04:29)
[2024-09-19 05:16] LABS: CK-MB VALUE MASS 2.8 NG/ML (<3.6)
[2024-09-19 05:17] LABS: MB/CK RELATIVE INDEX 2.05 (< OR =4)
[2024-09-19 07:08] LABS: CK-MB VALUE MASS 4.5 NG/ML (<3.6)
[2024-09-19 07:10] LABS: MB/CK RELATIVE INDEX 3.35 (< OR =4)
[2024-09-19] MEDS ORDERED: APAP325T4 PO (08:29)
[2024-09-19] MEDS ORDERED: COLC0.6T47 PO (08:29)
[2024-09-19] MEDS ORDERED: TORS10TA3 PO (08:29)
[2024-09-19] MEDS ORDERED: DICL100G10 TOP (08:29)
[2024-09-19] MEDS ORDERED: PANT40TA29 PO (08:29)
[2024-09-19] MEDS ORDERED: HOME MED LIST COMPLETE! XX SCH (08:35)
[2024-09-19 08:55] VITALS: BP 160/70; TEMP 96.8; O2SAT 97
== END 2024-09-19 08:53 | disposition short-term general hospital (02) ==
LOC: M ED 03:11 → EDBD 03:11 → M ED 08:53
DX: I21.4 Non-ST elevation (NSTEMI) myocardial infarction (principal); J90 Pleural effusion, not elsewhere classified; I31.39 Other pericardial effusion (noninflammatory); I48.91 Unspecified atrial fibrillation; K21.9 Gastro-esophageal reflux disease without esophagitis; I10 Essential (primary) hypertension; E78.5 Hyperlipidemia, unspecified; N40.0 Benign prostatic hyperplasia without lower urinary tract symptoms; Z88.8 Allergy status to other drugs, medicaments and biological substances; Z79.1 Long term (current) use of non-steroidal anti-inflammatories (NSAID); Z79.899 Other long term (current) drug therapy
CPT/HCPCS: 71045; 71275; 80047; 80048; 82550; 82553; 84484; 85025; 87486; 87581; 87633; 87798; 93005; 93041; 94760; 96374; 99285; Q9967

== ENCOUNTER → 2024-09-23 | Outpatient (CLI) | payer MEDICARE, BC ==
[~2024-09-23] MED LIST changes: +APAP325T4 PO; +DICL100G10 TOP; +PANT40TA29 PO; +TORS10TA3 PO
== END ==
LOC: M PLALAB 11:50
PROVIDERS: ATTEND Family Medicine
DX: M85.88 Other specified disorders of bone density and structure, other site (principal); M47.814 Spondylosis without myelopathy or radiculopathy, thoracic region; K74.00 Hepatic fibrosis, unspecified; D46.9 Myelodysplastic syndrome, unspecified; I50.32 Chronic diastolic (congestive) heart failure; Z12.5 Encounter for screening for malignant neoplasm of prostate

== ENCOUNTER → 2024-10-03 | Outpatient (CLI) | payer MEDICARE, BC ==
[2024-10-03 14:51] LABS: BASO % 0.5 % (0.0-1.0); EOS # 0.1 10^3/uL (0.0-0.5); EOS % 3.2 % (0.0-3.0); HEMATOCRIT 32.3 % (42.0-52.0); HEMOGLOBIN 10.2 g/dl (13.5-17.5); LYMPH # 1.1 10^3/uL (1.5-5.0); LYMPH % 26.5 % (24.0-44.0); MEAN CORPUSCULAR HEMOGLOBIN 32.9 pg (27.0-33.0); MEAN CORPUSCULAR HGB CONC 31.6 g/dl (32.0-36.5); MEAN CORPUSCULAR VOLUME 104.2 fl (80.0-96.0); MONO # 0.5 10^3/uL (0.0-0.8); MONO % 10.9 % (2.0-8.0); NEUTROPHILS # 2.5 10^3/uL (1.5-8.5); NEUTROPHILS % 58.4 % (36.0-66.0); PLATELET COUNT, AUTOMATED 220 10^3/uL (150-450); WHITE BLOOD COUNT 4.3 10^3/uL (4.0-10.0)
[2024-10-03 14:56] LABS: PSA SCREENING 0.04 NG/ML (< 4.00)
[2024-10-03 14:58] LABS: ALBUMIN 3.3 G/DL (3.2-5.2); ALKALINE PHOSPHATASE 210 U/L (40-129); ALT/SGPT 95 U/L (7.0-40); AST/SGOT 80 U/L (<34); BILIRUBIN,TOTAL 0.9 MG/DL (0.3-1.2); BLOOD UREA NITROGEN 21 MG/DL (9-23); CALCIUM LEVEL 9.7 MG/DL (8.3-10.6); CARBON DIOXIDE LEVEL 32 MMOL/L (20-31); CHLORIDE LEVEL 105 MMOL/L (98-107); CREATININE FOR GFR 1.02 MG/DL (0.70-1.30); GLOMERULAR FILTRATION RATE > 60.0 (>42); GLUCOSE, FASTING 143 MG/DL (74-106); IRON (FE) 112 UG/DL (65-175); MAGNESIUM LEVEL 2.1 MG/DL (1.8-2.4); PERCENT SATURATION 42.6 % (19.7-50.0); POTASSIUM SERUM 4.2 MMOL/L (3.5-5.1); SODIUM LEVEL 144 MMOL/L (136-145); TOTAL IRON BINDING CAPACITY 263 UG/DL (250-425); TOTAL PROTEIN 6.6 G/DL (5.7-8.2)
[2024-10-03 15:00] LABS: FERRITIN 470.3 NG/ML (10.5-307.3)
[2024-10-03 15:11] LABS: INR 1.07; PROTHROMBIN TIME 14.2 SECONDS (12.5-14.5)
== END ==
LOC: M PLALAB 12:07
PROVIDERS: ATTEND Family Medicine
DX: I50.32 Chronic diastolic (congestive) heart failure (principal); Z12.5 Encounter for screening for malignant neoplasm of prostate; I65.22 Occlusion and stenosis of left carotid artery; K74.00 Hepatic fibrosis, unspecified; D46.9 Myelodysplastic syndrome, unspecified
CPT/HCPCS: 36415; 80053; 82105; 82565; 82728; 83550; 83625; 83735; 83880; 84238; 84520; 85025; 85610; 85730; G0103

== ENCOUNTER → 2024-10-03 | Outpatient (CLI) | payer MEDICARE, BC ==
[2024-10-03 14:57] LABS: BLOOD UREA NITROGEN 21 MG/DL (9-23); CREATININE FOR GFR 1.03 MG/DL (0.70-1.30); GLOMERULAR FILTRATION RATE > 60.0 (>42)
== END ==
LOC: M PLALAB 12:08
PROVIDERS: ATTEND Physician Assistant
DX: I65.22 Occlusion and stenosis of left carotid artery (principal)

== ENCOUNTER → 2024-10-25 | Outpatient (CLI) | payer MEDICARE, BC | LOC: M LAB 15:16 | PROVIDERS: ATTEND Urology | DX: R97.20 Elevated prostate specific antigen [PSA] (principal) ==

== ENCOUNTER → 2024-10-26 | Outpatient (CLI) | payer MEDICARE, BC ==
[~2024-10-26] MED LIST changes: +ISOVUE-370 76% 100ML VIAL As Ordered ONE
== END ==
LOC: M RAD 12:40
PROVIDERS: ATTEND Surgery Vascular Surgery
DX: I65.22 Occlusion and stenosis of left carotid artery (principal)
CPT/HCPCS: 70496; 70498; Q9967

== ENCOUNTER → 2024-12-01 | Outpatient (REF) | payer MEDICARE, BC ==
[~2024-12-01] MED LIST changes: -ISOVUE-370 76% 100ML VIAL As Ordered ONE
[2024-12-01 12:59] LABS: APPEARANCE, URINE CLEAR (CLEAR); BACTERIA, URINE AUTO NEGATIVE (NEGATIVE); BILIRUBIN, URINE AUTO NEGATIVE (NEGATIVE); BLOOD, URINE BLOOD NEGATIVE (NEGATIVE); COLOR, URINE YELLOW (YELLOW); GLUCOSE, URINE (UA) AUTO NEGATIVE (NEGATIVE); KETONE, URINE AUTO NEGATIVE (NEGATIVE); LEUKOCYTE ESTERASE, URINE AUTO NEGATIVE (NEGATIVE); MUCUS, URINE SMALL (NEGATIVE); NITRITE, URINE AUTO NEGATIVE (NEGATIVE); PROTEIN, URINE AUTO NEGATIVE (NEGATIVE); RBC, URINE AUTO 0 /HPF (0-3); SPECIFIC GRAVITY URINE AUTO 1.011 (1.002-1.035); SQUAMOUS EPITHELIAL CELL UR AU 0 /HPF (0-6); WBC, URINE AUTO 1 /HPF (0-3)
== END ==
LOC: M SFHCPLAZ 12:10
PROVIDERS: ATTEND Student in an Organized Health Care Education/Training Program
DX: D49.4 Neoplasm of unspecified behavior of bladder (principal)

== ENCOUNTER → 2025-04-18 | Outpatient (CLI) | payer MEDICARE, BC ==
[2025-04-18 09:59] LABS: BASO % 0.4 % (0.0-1.0); EOS # 0.1 10^3/uL (0.0-0.5); HEMATOCRIT 28.3 % (42.0-52.0); HEMOGLOBIN 9.1 g/dl (13.5-17.5); LYMPH # 1.3 10^3/uL (1.5-5.0); LYMPH % 25.7 % (24.0-44.0); MEAN CORPUSCULAR HEMOGLOBIN 33.7 pg (27.0-33.0); MEAN CORPUSCULAR HGB CONC 32.2 g/dl (32.0-36.5); MEAN CORPUSCULAR VOLUME 104.8 fl (80.0-96.0); MONO # 0.5 10^3/uL (0.0-0.8); MONO % 9.5 % (2.0-8.0); NEUTROPHILS # 3.1 10^3/uL (1.5-8.5); NEUTROPHILS % 62.2 % (36.0-66.0); PLATELET COUNT, AUTOMATED 212 10^3/uL (150-450)
[2025-04-18 10:26] LABS: PERCENT SATURATION 27.2 % (19.7-50.0)
[2025-04-18 10:27] LABS: ALBUMIN 3.8 G/DL (3.2-5.2); BILIRUBIN,TOTAL 0.7 MG/DL (0.3-1.2); CALCIUM LEVEL 9.3 MG/DL (8.3-10.6); CHOLESTEROL RISK RATIO 2.45 (<5); CREATININE FOR GFR 1.08 MG/DL (0.70-1.30); FERRITIN 399.1 NG/ML (10.5-307.3); GLOMERULAR FILTRATION RATE 70.7 (>42); HDL CHOLESTEROL 46.5 MG/DL (>40); LDL CHOLESTEROL 44.3 MG/DL (<100); NON-HDL-C 67.5 MG/DL; POTASSIUM SERUM 4.6 MMOL/L (3.5-5.1)
[2025-04-18 10:29] LABS: PTH INTACT 33.5 PG/ML (18.5-88.0)
== END ==
LOC: M PLALAB 09:02
PROVIDERS: ATTEND Family Medicine
DX: D46.9 Myelodysplastic syndrome, unspecified (principal); E78.00 Pure hypercholesterolemia, unspecified

== ENCOUNTER → 2025-07-07 | Outpatient (CLI) | payer MEDICARE, BC ==
[~2025-07-07] MED LIST changes: +BARIUM SULFATE 700 MG TABLET As Ordered ONE; +E-Z-PAQUE 96% w/w SUSP 176 GM BTL As Ordered ONE; +VARIBAR NECTAR 40% w/v 240ML SUSP BTL As Ordered ONE; +VARIBAR PUDDING 40% w/v 230ML TUBE As Ordered ONE
== END ==
LOC: M RAD 11:12
PROVIDERS: ATTEND Family Medicine
DX: R13.12 Dysphagia, oropharyngeal phase (principal)

== ENCOUNTER → 2025-08-24 | Outpatient (CLI) | payer MEDICARE, BC ==
[~2025-08-24] MED LIST changes: -BARIUM SULFATE 700 MG TABLET As Ordered ONE; -COLC0.6T47 PO; +COLC0.6T53 PO; -E-Z-PAQUE 96% w/w SUSP 176 GM BTL As Ordered ONE; -VARIBAR NECTAR 40% w/v 240ML SUSP BTL As Ordered ONE; -VARIBAR PUDDING 40% w/v 230ML TUBE As Ordered ONE
== END ==
LOC: M RAD 08:02
PROVIDERS: ATTEND Family Medicine
DX: K74.00 Hepatic fibrosis, unspecified (principal); N28.1 Cyst of kidney, acquired; R16.1 Splenomegaly, not elsewhere classified; Z90.49 Acquired absence of other specified parts of digestive tract

== ENCOUNTER → 2025-08-29 | Outpatient (CLI) | payer MEDICARE, BC ==
[2025-08-29 12:54] LABS: BASO # 0.0 10^3/uL (0.0-0.2); BASO % 0.2 % (0.0-1.0); EOS # 0.1 10^3/uL (0.0-0.5); EOS % 1.8 % (0.0-3.0); LYMPH # 1.0 10^3/uL (1.5-5.0); LYMPH % 22.9 % (24.0-44.0); MONO # 0.4 10^3/uL (0.0-0.8); MONO % 9.2 % (2.0-8.0); NEUTROPHILS # 2.9 10^3/uL (1.5-8.5); NEUTROPHILS % 65.4 % (36.0-66.0); PLATELET COUNT, AUTOMATED 195 10^3/uL (150-450)
[2025-08-29 13:05] LABS: PSA SCREENING 0.07 NG/ML (< 4.00)
[2025-08-29 13:07] LABS: ALT/SGPT 29.0 U/L (7.0-40); AST/SGOT 37.0 U/L (<34); CALCIUM LEVEL 9.0 MG/DL (8.3-10.6); CARBON DIOXIDE LEVEL 29.0 MMOL/L (20-31); CHLORIDE LEVEL 105.0 MMOL/L (98-107); CHOLESTEROL LEVEL 112.0 MG/DL (<200); CHOLESTEROL RISK RATIO 2.52 (<5); CREATININE FOR GFR 1.11 MG/DL (0.70-1.30); GLOMERULAR FILTRATION RATE 68.0 (>42); IRON (FE) 117.0 UG/DL (65-175); LDL CHOLESTEROL 49.6 MG/DL (<100); MAGNESIUM LEVEL 2.0 MG/DL (1.8-2.4); NON-HDL-C 67.6 MG/DL; PERCENT SATURATION 44.3 % (19.7-50.0); POTASSIUM SERUM 4.4 MMOL/L (3.5-5.1); SODIUM LEVEL 138.0 MMOL/L (136-145); TRIGLYCERIDES LEVEL 90.0 MG/DL (<150)
[2025-08-29 13:09] LABS: INR 1.09; TOTAL 25(OH) VITAMIN D 46.4 NG/ML (20.0-100.0)
[2025-08-29 13:22] LABS: PTH INTACT 37.2 PG/ML (18.5-88.0)
== END ==
LOC: M PLALAB 10:07
PROVIDERS: ATTEND Family Medicine
DX: E55.9 Vitamin D deficiency, unspecified (principal); E78.2 Mixed hyperlipidemia; D46.9 Myelodysplastic syndrome, unspecified; I50.32 Chronic diastolic (congestive) heart failure; Z12.5 Encounter for screening for malignant neoplasm of prostate; K74.00 Hepatic fibrosis, unspecified
CPT/HCPCS: 36415; 80053; 80061; 82105; 82306; 83550; 83735; 83880; 83970; 84238; 85025; 85610; 85730; G0103

== ENCOUNTER → 2025-09-09 | Outpatient (CLI) | payer MEDICARE, BC ==
[2025-09-09 10:05] LABS: BASO # 0.0 10^3/uL (0.0-0.2); BASO % 0.5 % (0.0-1.0); EOS # 0.1 10^3/uL (0.0-0.5); EOS % 1.6 % (0.0-3.0); LYMPH # 1.0 10^3/uL (1.5-5.0); LYMPH % 22.7 % (24.0-44.0); MONO # 0.4 10^3/uL (0.0-0.8); MONO % 8.6 % (2.0-8.0); NEUTROPHILS # 2.9 10^3/uL (1.5-8.5); NEUTROPHILS % 66.4 % (36.0-66.0); PLATELET COUNT, AUTOMATED 193 10^3/uL (150-450)
[2025-09-09 10:23] LABS: INR 1.08
[2025-09-09 10:30] LABS: ESTIMATED AVERAGE GLUCOSE 111.0 MG/DL (60-110)
[2025-09-09 10:33] LABS: IRON (FE) 116.0 UG/DL (65-175); PERCENT SATURATION 42.0 % (19.7-50.0)
[2025-09-09 10:34] LABS: ALT/SGPT 29.0 U/L (7.0-40); AST/SGOT 40.0 U/L (<34); CALCIUM LEVEL 9.2 MG/DL (8.3-10.6); CARBON DIOXIDE LEVEL 27.0 MMOL/L (20-31); CHLORIDE LEVEL 105.0 MMOL/L (98-107); CHOLESTEROL LEVEL 112.0 MG/DL (<200); CHOLESTEROL RISK RATIO 2.49 (<5); CREATININE FOR GFR 1.09 MG/DL (0.70-1.30); GLOMERULAR FILTRATION RATE 69.5 (>42); LDL CHOLESTEROL 47.5 MG/DL (<100); MAGNESIUM LEVEL 2.2 MG/DL (1.8-2.4); NON-HDL-C 67.1 MG/DL; POTASSIUM SERUM 4.5 MMOL/L (3.5-5.1); PSA SCREENING 0.04 NG/ML (< 4.00); PTH INTACT 37.2 PG/ML (18.5-88.0); SODIUM LEVEL 140.0 MMOL/L (136-145); TRIGLYCERIDES LEVEL 98.0 MG/DL (<150)
[2025-09-09 10:35] LABS: FREE T4 0.87 NG/DL (0.89-1.76)
[2025-09-09 10:58] LABS: TOTAL 25(OH) VITAMIN D 45.1 NG/ML (20.0-100.0)
[2025-09-09 11:21] LABS: VITAMIN B12 LEVEL 443.0 PG/ML (211-911)
== END ==
LOC: M LAB 08:56
PROVIDERS: ATTEND Family Medicine
DX: D46.9 Myelodysplastic syndrome, unspecified (principal); I50.32 Chronic diastolic (congestive) heart failure; E78.2 Mixed hyperlipidemia; K74.00 Hepatic fibrosis, unspecified; E55.9 Vitamin D deficiency, unspecified; R73.01 Impaired fasting glucose; Z12.5 Encounter for screening for malignant neoplasm of prostate
CPT/HCPCS: 36415; 80053; 80061; 82105; 82306; 82607; 83036; 83550; 83735; 83880; 83970; 84238; 84439; 84443; 85025; 85610; 85730; 86850; 86900; 86901; 86920; G0103

== ENCOUNTER 2025-09-11 08:05 | Outpatient (CLI) | payer MEDICARE, BC ==
[~2025-09-11] VITALS: Ht 177.8 cm; Wt 100.9 kg
[2025-09-11 08:30] VITALS: BP 128/58; O2SAT 97
[2025-09-11 09:25] VITALS: BP 134/61; TEMP 98; O2SAT 98
[2025-09-11 10:30] VITALS: BP 136/64; TEMP 98; O2SAT 97
[2025-09-11 11:25] VITALS: BP 146/70; TEMP 98.1; O2SAT 97
[2025-09-11] MEDS: FUROSEMIDE 40 MG/4 ML VIAL IV ONE (11:36)
[2025-09-11 12:15] VITALS: BP 138/66; O2SAT 98
== END 2025-09-11 12:15 | disposition home or self-care (01) ==
LOC: M INFU 08:05
PROVIDERS: ATTEND Family Medicine
DX: D47.1 Chronic myeloproliferative disease (principal); Z88.6 Allergy status to analgesic agent; Z88.8 Allergy status to other drugs, medicaments and biological substances
CPT/HCPCS: 36430; J1938; P9016

== ENCOUNTER → 2025-09-14 | Outpatient (CLI) | payer MEDICARE, BC | LOC: M LAB 11:49 | PROVIDERS: ATTEND Urology | DX: C67.9 Malignant neoplasm of bladder, unspecified (principal); Z79.899 Other long term (current) drug therapy ==